=== PATIENT | female | born 1935 | race Caucasian/White ===

== ENCOUNTER 2017-11-28 15:38 | Inpatient (IN) | payer MEDICARE ==
[~2017-11-28] VITALS: Ht 154.9 cm; Wt 70.3 kg
[2017-11-28 17:25] VITALS: BP 113/67
[2017-11-28] MEDS ORDERED: CARISOPRODOL 350 MG (SOMA) TAB PO PRN (17:45)
[2017-11-28] MEDS: ESTRADIOL VAGINAL CREAM 42.5 GM (ESTRACE) VG SCH (20:31)
[2017-11-28] MEDS: ACETAMINOPHEN 325 MG TABLET PO PRN (20:33)
[2017-11-28] MEDS ORDERED: CIPROFLOXACIN 500 MG (CIPRO) TABLET PO ONE (20:47)
[2017-11-28] MEDS ORDERED: ALPRAZolam 0.5 MG (XANAX) TAB ONE (20:47)
--- NOTE | 2017-11-28 20:48 | HISTORY AND PHYSICAL ---
DATE OF SERVICE: 11/28/2017 CHIEF COMPLAINT: Difficulty with walking. HISTORY OF PRESENT ILLNESS: The patient is a 81-year-old female who was admitted to [facility] on 11/24/2017 due to severe painful deformity secondary to rheumatoid arthritis. The patient had resection of metatarsal head 2 through 5 and arthrodesis of the left first metatarsophalangeal joint, arthrodesis and hammer toe correction of the proximal interphalangeal joints 2 through 4, hammertoe arthroplasty of the fifth digit with podiatry. The patient is nonweightbearing postoperatively. She had been independent prior to this despite having rheumatoid arthritis affecting her feet, knees and spine. She has had two prior spinal surgeries, one in lumbar spine and cervical spine. Currently, she requires assistance for ADLs and mobility skills. She is referred to inpatient rehabilitation at [facility] for ongoing care and treatment. She has two daughters that live in the area where she lives in [place], [place]. The patient lives alone in her own house. PAST MEDICAL HISTORY: Thoracic aortic aneurysm without rupture, hypothyroidism on replacement, GERD with esophagitis, acute cystitis. PAST SURGICAL HISTORY: Spinal surgeries as per above and most recent foot surgery, right foot. ALLERGIES: ADHESIVE TAPE, LIPITOR, MORPHINE, SULFA, TRAMADOL, TRIMETHOPRIM. FAMILY HISTORY: Stroke, hypertension, stomach cancer, heart disease. SOCIAL HISTORY: She is retired, , lives in [place], [place]. A [id number] history of tobaccoism, cigarettes, quit 06/1972. She has 2 supportive children that report to unit with her. REVIEW OF SYSTEMS: A 10-point review of systems significant for arthritic pain in the spine, knees and feet. MEDICATIONS: Tylenol 650 mg p.o. q.6 hours as needed for pain, Percocet generic 5/325 one tablet p.o. q.6 hours as needed for pain, Xanax 0.5 mg p.o. daily, prednisone 2 mg p.o. daily, ASA 81 mg p.o. daily, Soma 350 mg p.o. at bedtime as needed for spasm, Cipro 250 mg p.o. b.i.d. for 5 days, Estrace vaginal cream apply vaginally every Tuesday, Tuesday, Tuesday; Flonase nasal spray 2 sprays each nostril b.i.d., Imdur 30 mg p.o. daily, levothyroxine 75 mcg p.o. daily, multivitamins 1 tablet p.o. daily, omeprazole 40 mg p.o. daily, probiotic 1 tablet p.o. daily, vitamin D 3000 units p.o. daily. PHYSICAL EXAMINATION: GENERAL: Significant for a pleasant female appearing her stated age, alert and oriented, in no acute distress, lying in bed. VITAL SIGNS: She is afebrile. Blood pressure 113/67, pulse 64, respirations 18, O2 sat 96% on room air. HEENT: Vision, speech, hearing grossly intact. No oral lesion is noted. NECK: Supple without mass. HEART: Regular rhythm. CHEST: Clear. ABDOMEN: Soft, nontender, bowel sounds present. EXTREMITIES: Her left foot is in a boot. There is no lower leg edema or calf tenderness on the right. MUSCULOSKELETAL: She has good minus strength in both upper limbs, Left Lower Limv strength Hip flex not tested due to pain with hip flexion Knee extension 4/ 5 as well as knee extension. RT Lower ext strength 3+/5 knee flexion 4/5 as well as knee extension. Dorsiflexion 5/5 NEUROLOGIC: Sensation is grossly intact to touch. Cognition grossly intact. IMPRESSION: 1. Ambulatory dysfunction secondary to consequences of rheumatoid arthritis, status post left foot surgery as described above, nonweightbearing left lower limb. 2. Arthritis of the spine, status post C-spine and lumbar spine surgery in the past. 3. Hypothyroidism, on replacement. 4. UTI on PO antibiotic. 5. Thoracic aortic aneurysm without rupture. 6. Gastroesophageal reflux disease with esophagitis on Prilosec. PLAN: The patient will have a comprehensive program of inpatient rehabilitation with goal of maximizing level of functional independence prior to discharge home with family with home health care. I believe her nonweightbearing status will be for 6 weeks. I will focus on wheelchair level of function for ADLs and mobility skills. Please see post-admission physician evaluation, which is a separate document of details of plan of care. Speech therapy to do cognitive assessment and treat as indicated. Rehabilitation nursing to assist with bowel, bladder, skin, wound care, medication administration, pain management. creative services director to assist with discharge planning, community reentry. Consult Dr. Hood to assist with medical management as needed for this out of town patient. ESTIMATED LENGTH OF STAY: 14 days. PROGNOSIS: Rehab prognosis appears good for goal of discharging home with family and home health care, hopefully modified independent to supervision for ADLs, mobility skills at the wheelchair level of function due to postop state of nonweightbearing right lower extremity for several weeks. DIET: Regular. CODE STATUS: Full code. Job ID: [id number] DocumentID: [id number] Dictated Date: 11/28/2017 19:05:46 Billet Sawyer Date: 11/28/2017 20:19:44 Dictated By: TOM ORTIZ MD [facility]
[2017-11-28] MEDS: ALPRAZolam 0.5 MG (XANAX) TAB PO SCH (20:53)
[2017-11-28] MEDS ORDERED: POLYETHYLENE GLYCOL 17 GM (MIRALAX) PACK PO SCH (21:00)
[2017-11-29] MEDS: LACTOBACILLUS Acidoph/Bulgar (LACTINEX/FLORANEX) TAB PO SCH ×3 (05:37→16:54)
[2017-11-29] MEDS: MULTIVIT W/MINERALS TAB (THERAGRAN M) PO SCH (05:38)
[2017-11-29] MEDS: LEVOTHYROXINE 75 MCG (LEVOTHROID) TABLET PO SCH (05:38)
[2017-11-29] MEDS: PANTOPRAZOLE 40 MG (PROTONIX) TAB PO SCH (05:38)
[2017-11-29 05:44] VITALS: BP 130/77
[2017-11-29] MEDS ORDERED: predniSONE 1 MG TAB PO SCH (07:00)
[2017-11-29 07:01] LABS: BASOPHILS % (AUTO) 0 % (0-10); EOSINOPHILS # (AUTO) 0.3 10^3/uL (0.0-0.3); EOSINOPHILS % (AUTO) 3 % (0-10); HEMATOCRIT 34 % (35-52); LYMPHOCYTES # (AUTO) 2.3 X 10^3 (1.0-4.0); LYMPHOCYTES % (AUTO) 26 % (12-44); MEAN CORPUSCULAR HEMOGLOBIN 27 PG (25-34); MEAN CORPUSCULAR HGB CONC 32 G/DL (32-36); MEAN CORPUSCULAR VOLUME 84 FL (80-99); MEAN PLATELET VOLUME 10.6 FL (7.4-10.4); MONOCYTES # (AUTO) 0.9 X 10^3 (0.0-1.0); MONOCYTES % (AUTO) 10 % (0-12); NEUTROPHILS # (AUTO) 5.2 X 10^3 (1.8-7.8); NEUTROPHILS % (AUTO) 60 % (42-75); PLATELET COUNT 201 10^3/uL (130-400); RED BLOOD COUNT 4.05 10^6/uL (4.35-5.85); RED CELL DISTRIBUTION WIDTH 19.6 % (10.0-14.5); WHITE BLOOD COUNT 8.6 10^3/uL (4.3-11.0)
[2017-11-29 07:41] LABS: ALANINE AMINOTRANSFERASE 12 U/L (0-55); ALBUMIN 3.4 GM/DL (3.2-4.5); ALKALINE PHOSPHATASE 54 U/L (40-136); BILIRUBIN,TOTAL 0.4 MG/DL (0.1-1.0); BUN/CREATININE RATIO 13; CALCIUM 8.8 MG/DL (8.5-10.1); CARBON DIOXIDE 26 MMOL/L (21-32); CHLORIDE 105 MMOL/L (98-107); CREATININE SERUM 0.77 MG/DL (0.60-1.30); GFR ESTIMATED > 60; GLUCOSE 89 MG/DL (70-105); POTASSIUM 3.9 MMOL/L (3.6-5.0); SODIUM 141 MMOL/L (135-145); TOTAL PROTEIN 6.1 GM/DL (6.4-8.2)
--- NOTE | 2017-11-29 08:44 | Consultation ---
History of Present Illness History of Present Illness Patient Consulted On(cornelius/time) 11/29/17 08:40 Time Seen by Provider: 08:40 History of Present Illness Patient had foot surgery left at [facility] in [place]. Patient nonweightbearing. Patient has a history of rheumatoid arthritis and hypothyroidism. Surgeries tubal ligation, hysterectomy, gallbladder. Allergies and Home Medications Allergies Coded Allergies: morphine (Verified Allergy, Mild, 11/28/17) Severe itching adhesive (Verified Allergy, Unknown, RASH, 11/28/17) atorvastatin (Verified Allergy, Unknown, 11/28/17) Muscle pain sulfamethoxazole (Verified Allergy, Unknown, HIVES, 11/28/17) tramadol (Verified Allergy, Unknown, 11/28/17) Hallucinations trimethoprim (Verified Allergy, Unknown, HIVES, 11/28/17) Patient Home Medication List Home Medication List Reviewed: Yes Past Czdkttm-Nncnqt-Ukmfxj Hx Patient Social History Smoking Status: Former Smoker Type Used: Cigarettes Former Smoker, Quit: Jun 20, 1972 Recent Foreign Travel: No Contact w/Someone Who Travel: No Recent Infectious Disease Expo: No Immunizations Up To Date Date of Pneumonia Vaccine: May 06, 2015 Past Medical History Surgeries: Yes (Arthrodesis- Left foot and Metatarsal resection 2-5. ) Cardiac: Yes (Chest pain; Thoracic Aneurysm without rupture) Gastrointestinal: Yes (Diverticulitis; ) Roblero's Esophagus Osteoporosis, Arthritis, Rheumatoid Arthritis Endocrine: Yes Cancer: No Review of Systems-General Constitutional: no symptoms reported EENTM: no symptoms reported Respiratory: no symptoms reported Cardiovascular: other (Skipped heartbeats) Gastrointestinal: no symptoms reported Genitourinary: other (History of acute cystitis) Physical Exam-General Problems Physical Exam Vital Signs Vital Signs - First Documented 11/28/17 17:25 Temp 97.4 Pulse 64 Resp 18 B/P (MAP) 113/67 (82) Pulse Ox 96 O2 Delivery Room Air Capillary Refill : General Appearance: WD/WN, no apparent distress Eyes: Bilateral Eye Normal Inspection HEENT: normal ENT inspection Neck: non-tender, full range of motion Respiratory: lungs clear, no respiratory distress, no accessory muscle use Cardiovascular: other (Skipped beats) Gastrointestinal: non tender, soft Assessment/Plan Assessment/Plan Admission Diagnosis/Plan Rheumatoid arthritis. Recent foot surgery. Nonweightbearing. Hypothyroid. Skipped heartbeats. Aortic aneurysm 4 cm 1 year ago Admission Status: Inpatient Order (span 2 midnights) Reason for Inpatient Admission: Recent surgery of left foot. Rheumatoid arthritis. Nonweightbearing Clinical Quality Measures DVT/VTE Risk/Contraindication: Risk Factor Score Per Nursin RFS Level Per Nursing on Admit: 4+=Very High LISA HARDING DO Nov 29, 2017 08:44
--- NOTE | 2017-11-29 08:57 | Physical Therapy Evaluation ---
PT Evaluation-General Medical Diagnosis Admission Date Nov 28, 2017 at 17:21 Medical Diagnosis: rheumatoid arthritis Onset Date: Nov 24, 2017 Therapy Diagnosis Therapy Diagnosis: impaired mobility, strength, endurance, balance, ROM Height/Weight Height (Feet): 5 Height (Inches): 1.00 Weight (Pounds): 155 Weight (Ounces): 0.0 Precautions Precautions/Isolations: Fall Prevention, Standard Precautions Weight Bear Status Right Lower Extremity: Right Full Weight Bearing Left Lower Extremity: Left Non Weight Bearing Referral Physician: Ad Reason for Referral: Evaluation/Treatment Medical History Additional Medical History PAST MEDICAL HISTORY: Thoracic aortic aneurysm without rupture, hypothyroidism on replacement, GERD with esophagitis, acute cystitis. PAST SURGICAL HISTORY: Spinal surgeries as per above and most recent foot surgery, right foot. Current History The patient had resection of metatarsal head 2 through 5 and arthrodesis of the left first metatarsophalangeal joint, arthrodesis and hammer toe correction of the proximal interphalangeal joints 2 through 4, hammertoe arthroplasty of the fifth digit with podiatry. Reviewed History: Yes Social History Home: Single Level Current Living Status: Alone Entry Into Home: Stairs With Railing PT Steps Into Home: 4 Patient states she is having a ramp built at her home and that she has a daughter living on her property but she works during the day. Prior/Core FIM Prior Level of Function Functional [place] Measure 0=Not Assessed/NA 4=Minimal Assistance 1=Total Assistance 5=Supervision or Setup 2=Maximal Assistance 6=Modified [place] 3=Moderate Assistance 7=Complete [place] Bed Mobility: 7 Transfers (B,C,W/C) (FIM): 7 Gait: 7 Patient states she was ambulating without an assistive device but did occasionally use a 4 wheeled walker on her porch. PT Evaluation-Current Subjective Patient in bed pre tx, agrees to PT, has 2/10 pain in her left foot. Patient has a back brace she likes to use to help with some abdominal pain she has. Pt/Family Goals "to get stronger and walk better" Objective Patient Orientation: Person, Place, Situation boot left foot ROM/Strength ROM Lower Extremities WNL except left ankle and foot not tested Strenght Lower Extremities right lower extremity hip flexion 3+/5, knee flexion 4/5, knee extension 4/5, dorsiflexion 5/5 left lower extremity hip flexion not tested due to pain with hip flexion, knee extension 4/5, knee flexion 4/5 Neuromuscular (Tone, Coordination, Reflexes) NT Sensory Vision: Functional Hearing: Functional Sensation Right Lower Extremit: Intact Sensation Left Lower Extremity: Intact Sensation Lower Extremities Patient states she has some numbness on the bottom of her right foot due to ankle surgery Transfers Functional Preble Measure 0=Not Assessed/NA 4=Minimal Assistance 1=Total Assistance 5=Supervision or Setup 2=Maximal Assistance 6=Modified [place] 3=Moderate Assistance 7=Complete IndependenceIRFPAI Quality Coding Scale 6 Independent with activity with or without an assistive device 5 Patient requires set up or clean up by helper. Patient completes activity by themselves 4 Supervision or touching assist (CGA). [place] provide cues , steadying assist 3 The helper provides less than half the effort to complete the activity 2 The helper provides more than half the effort to complete the activity 1 Dependent. The helper does all the effort to complete an activity 7 Patient refused to complete or attempt activity 9 The patient did not perform the activity before the current illness or injury 88 Not attempted due to Medical conditions or safety concerns Transfers (B, C, W/C) (FIM): 4 Scootin Rollin Roll Left to Right (QC): 4 Supine to/from Sit: 5 Sit to/from Stand: 4 bed t/f WC(FIM only if WC use): 4 Sit to Lying (QC): 4 Lying to Sitting/Side of Bed(Q: 4 Sit to Stand (QC): 4 Chair/Eym-ad-Fazlf Xfer(QC): 4 Car Transfer (QC): 4 Patient performs bed mobility with SBA, sit to stand and stand pivot transfers with CGA, car transfer with CGA. Patient needs cues for safety and hand placement. She has some difficulty with stand pivot transfer because she has a hard time pivoting on her right foot but she can do it with effort. Gait Does the Patient Walk?: Yes Mode of Locomotion: Walk Anticipated Mode of Locomotion: Walk Gait (FIM): 1 Walk 10 feet (QC): 88 Walk 50 ft with 2 Turns(QC): 88 Walk 150 ft (QC): 88 Walking 10ft/uneven surface-QC: 88 Distance: 3' Gait Level of Assist: 4 Gait Persons Needed: 1 Gait Assistive Device: FWW Comments/Gait Description Patient ambulated 3' with a rolling walker with CGA. She has a hard time hopping on her right leg but can do very small hops without assist but CGA. Wheelchair Training Does the Pt Use a Wheelchair?: Yes Wheelchair (FIM): 5 Distance: 150'x2 Wheelchair Level of Assist: 5 Wheel 50 ft with 2 turns (QC): 4 Wheel 150 ft (QC): 4 Type of Wheelchair: Manual Stairs If not tested on admit;explain Patient cannot hop high enough to get her right foot onto a step. Balance Sitting Static: Normal Sitting Dynamic: Normal Standing Static: Fair Standing Dynamic: Fair Picking up an Object (QC): 88 Treatment standing exercises in parallel bars x15 (hip flexion and abd left side, hamstring curls and marching left side), seated LAQ alternating for 5 min, seated hip abd with pillow x20 and hip abd with RTB x20 Assessment/Needs Patient has impaired mobility, strength, endurance, balance, ROM due to RA and left foot surgery Rehab Potential: Fair PT Short Term Goals Short Term Goals Time Frame: Dec 06, 2017 Transfers (B,C,W/C) (FIM): 5 Gait (FIM): 1 Gait Distance Comment: 20' Gait Level of Assist: 4 Gait Assistive Device: FWW PT Custodial Goals Custodial Goals PT Maintenance Helper Goals Time Frame: Dec 20, 2017 Transfers (B,C,W/C) (FIM): 6 Sit to Lying (QC): 6 Lying-Sitting on Side/Bed(QC): 6 Sit to Stand (QC): 6 Rollin Roll Left to Right (QC): 6 Chair/Yse-ys-Edexc Xfer(QC): 6 Car Transfer (QC): 6 Gait (FIM): 2 Distance: 50' Walk 10 feet (QC): 4 Walk 10ft-Uneven Surface(QC): 4 Walk 50ft with 2 Turns (QC): 4 Walk 150 ft (QC): 4 Gait Level of Assist: 5 Gait Assistive Device: FWW Wheelchair (FIM): 6 Distance: 150' Wheelchair Level of Assist: 6 Wheel 50 feet with 2 turns (QC: 6 PT Plan Problem List Problem List: Activity Tolerance, Functional Strength, Safety, Balance, Gait, Transfer, Bed Mobility, ROM Treatment/Plan Treatment Plan: Continue Plan of Care Treatment Plan: Bed Mobility, Education, Functional Activity Kang, Functional Strength, Group Therapy, Gait, Safety, Therapeutic Exercise, Transfers Treatment Duration: Dec 20, 2017 Frequency: At least 5 of 7 days/Wk (IRF) Estimated Hrs Per Day: 1.5 hours per day Patient and/or Family Agrees t: Yes Safety Risks/Education Patient Education: Gait Training, Transfer Techniques, Reviewed Precautions, Correct Positioning, W/C Management, Safety Issues Teaching Recipient: Patient Teaching Methods: Demonstration, Discussion Response to Teaching: Reinforcement Needed Discharge Recommendations Plan Patient will perform bed mobility and transfer training, balance and endurance training, functional strengthening, stair training, gait training, and education , to improve functional mobility and independence at home. Therapy D/C Recommendations: Home w/ Family Support Time/GCodes Time In: 800 Time Out: 0900 Total Billed Treatment Time: 60 Total Billed Treatment 1 visit EVM 30' FA 15' EX 15' TABITHA FERGUSON PT Nov 29, 2017 08:57
--- NOTE | 2017-11-29 08:59 | PM&R Post Admission Assessment ---
Post Admission Physician Asses Date seen by provider: Nov 29, 2017 Time seen by provider: 07:55 Admisison Dx: (1) Rheumatoid arthritis The preadmission screen agrees with the post admission assessment that the patient is a good candidate for inpatient rehabilitation. The patient will have a comprehensive program of inpatient rehabilitation with a goal of maximizing level of functional independence prior to discharge home with family and HHC. The patient will have PT/OT ninety minutes per day, each discipline, five days a week for 14 days for gait, strengthening, conditioning, balance, ADLs, any patient/family/caregiver training as necessary. Speech therapy to do cognitive assessment and treat as indicated. Rehabilitation nursing to assist with bowel, bladder, skin, wound care, medication administration, pain management. Bread Oven Operator to assist with discharge planning, community reentry. SCD's for DVT prophylaxis. She appears to be well motivated to participate in three hours of therapy a day. She should be able to tolerate three hours of therapy a day from a medical and surgical standpoint. She should benefit from the three hours of therapy a day. She has a reasonable discharge plan, reasonable discharge rehabilitation goals and a supportive family. She has various comorbidities that need to be closely monitored with medications and treatments adjusted on a daily basis as needed. These include: Postop UTI GERD Thoracic aortic aneurysm Chronic steroid usage Barriers to discharge for this patient who had been independent prior to this are for her to be modified independent to supervision for ADLs and mobility skills prior to discharge home with family and HHC, so as to lessen the burden of the caregivers. Will focus on W/C level of function due to NWB status RLE postop for several weeks. The patient has a supportive family who lives nearby.Will focus on strengtheing Upper limbs and LLE to compenstae for NWB status RLE. Risks for this patient include: 1. Fall 2. Fracture 3. DVT 4. Pulmonary embolism 5. Wound infection 6. Skin breakdown 7. Contractures 8. Poorly controlled pain 9. Urinary retention 10. Recurrent UTI 11. Respiratory infection 12. Aspiration 13.Flare of RA Estimated Length of Stay: 14 days Prognosis: Rehab prognosis appears good for goal of discharge home with family and HHC modified independent to supervision for ADLs and mobility skills. at the w/c level of function due to NWB Status RLE.The patient had been Independent and living alone in her own home prior to this surgery. General: Alert, Oriented X3, Cooperative, No Acute Distress HEENT: Atraumatic, PERRLA, EOMI, Mucous Memb Moist/[place] Neck: Supple, No JVD Lungs: Clear to Auscultation Heart: Regular Rate Abdomen: Normal Bowel Sounds, Soft, No Tenderness Extremities: Other (RT Foot in boot) Neuro: Other (Strength 4/5 BUES and LLE RT limited by boot Sensation grossly intact to touch) TOM ORTIZ MD Nov 29, 2017 08:59
[2017-11-29] MEDS ORDERED: ALPRAZolam 0.5 MG (XANAX) TAB PO SCH (09:00)
[2017-11-29] MEDS ORDERED: FLUT16SP22 NS (09:16)
[2017-11-29] MEDS ORDERED: OMEP40CA36 PO (09:16)
[2017-11-29] MEDS ORDERED: ALPR0.5T7 PO (09:16)
[2017-11-29] MEDS ORDERED: L.AC1CAP6 PO (09:16)
[2017-11-29] MEDS ORDERED: PRED5TAB PO (09:16)
[2017-11-29] MEDS ORDERED: ESTR42.52 VG (09:16)
[2017-11-29] MEDS ORDERED: CHOL10007 PO (09:16)
[2017-11-29] MEDS ORDERED: MULT-35 PO (09:16)
[2017-11-29] MEDS ORDERED: PRD1T PO (09:16)
[2017-11-29] MEDS ORDERED: LEVO75TA6 PO (09:16)
[2017-11-29] MEDS ORDERED: ASPI-983 PO (09:16)
[2017-11-29] MEDS ORDERED: ISOS30TA3 PO (09:16)
[2017-11-29] MEDS ORDERED: CARI350T27 PO (09:16)
[2017-11-29] MEDS: ISOSORBIDE MONONITRATE 30 MG (IMDUR) TAB PO SCH (09:19)
[2017-11-29] MEDS: ASPIRIN E.C. 81 MG (ECOTRIN) TAB PO SCH (09:20)
[2017-11-29] MEDS: CIPROFLOXACIN 500 MG (CIPRO) TABLET PO SCH ×2 (09:20→21:13)
[2017-11-29] MEDS: VITAMIN D3 1,000 UNITS (CHOLECALCIFEROL) TABLET PO SCH (09:21)
[2017-11-29] MEDS: FLUTICASONE NASAL SPRAY (FLONASE) 16 GM BTL NS SCH (09:21)
--- NOTE | 2017-11-29 09:29 | ST Cognitive Linguistic Eval ---
Speech Evaluation-General Medical Diagnosis rheumatoid arthritis Onset Date: Nov 24, 2017 Therapy Diagnosis Therapy Diagnosis: Cognitive Linguistic Skills WNL Precautions Precautions/Isolations: Fall Prevention, Standard Precautions Referral Referring Physician: Dr. Maurice Duong Reason for Referral: Evaluation/Treatment Cognitive Evaluation Medical History Pertinent Medical History: Arthritis Current History The patient was recently admitted to [facility] following a left foot procedure. Reviewed History: Yes Social History Current Living Status: Alone Speech PLF-Current Status Prior Level of Function The patient denied prior challenges with speech, language, or cognition. Subjective The patient was seated upright on the edge of bed. The patient greeted the clinician and was agreeable to participation in the speech, language, and cognitive assessment. Language Eval: Auditory Comprehends Simple Yes/No Ques: Functional Indent/Objects Multiple Alvarez: Functional Ident/Pics in Multiple Alvarez: Functional Follows 1-Step Commands: Functional Follows Complex Directions: Functional Follows General Conversations: Functional Language Eval: Verbal Language Completes Spontaneous Greeting: Functional Produces Auto, Serial Info: Functional Imitates Simple Words/Phrases: Functional Word Finding: Functional Requests Basic Needs: Functional States Basic Personal Info: Functional Expresses Complex Ideas: Functional Cognitive Patient Orientation The patient was independently oriented to self, location, month, day of week, date, and year. Objective Cognitive Domain Attention: WNL Memory: WNL Problem Solving: Functional Executive Functions: WNL Objective Impression The patient demonstrated cognitive linguistic skills within normal limits. Communication/Social Cognition Comprehension: 6 (Glasses.) Expression: 7 Social Interaction: 7 Problem Solvin Memory: 7 Speech Patient Assess Expression of Ideas/Wants: Expression (4) Understanding Verbal Content: Understands (4) Brief Interview-Mental Status: Yes Repetition of Three Words: Three (3) Temporal Orientation: Year: Correct (3) Temporal Orientation: Month: Accurate within 5 days(2) Temporal Orientation: Day: Correct (1) Recall : Wear to say "Sock": Yes, no cue required (2) Recall : Color: Yes, no cue required (2) Recall : Bed: Yes, no cue required (2) Speech-Plan Treatment Plan Speech Therapy Treatment Plan: Discontinue ST No ST warranted. Frequency: Modified Program (IRF) Estimated Hrs Per Day: Other Rehab Potential: Good Safety Risks/Education Teaching Recipient: Patient Teaching Methods: Discussion Response to Teaching: Verbalize Understanding Education Topics Provided: Results, Recommendations Time Speech Therapy Time In: 09:00 Speech Therapy Time Out: 09:15 Total Billed Time: 15 Billed Treatment Time 1, SONA GE Nov 29, 2017 09:29
[2017-11-29] MEDS: POLYETHYLENE GLYCOL 17 GM (MIRALAX) PACK PO SCH ×2 (09:53→21:13)
[2017-11-29] MEDS ORDERED: CIPR250T3 PO (09:53)
[2017-11-29 10:02] LABS: BILIRUBIN,URINE NEGATIVE (NEGATIVE); CLARITY,URINE CLEAR; COLOR,URINE YELLOW; GLUCOSE, URINE (UA) NEGATIVE (NEGATIVE); KETONES,URINE NEGATIVE (NEGATIVE); LEUKOCYTE ESTERASE ,URINE NEGATIVE (NEGATIVE); NITRITE,URINE NEGATIVE (NEGATIVE); PH,URINE 8 (5-9); PROTEIN,URINE NEGATIVE (NEGATIVE); UROBILINOGEN,URINE NORMAL (NORMAL)
[2017-11-29 10:14] LABS: AMORPHOUS SEDIMENT,UR RARE AMOR PHOSPHATE /LPF; BACTERIA,URINE NEGATIVE /HPF; RBC,URINE 0-2 /HPF; SQUAMOUS EPITHELIAL CELL,UR RARE /HPF
[2017-11-29] MEDS: oxyCODONE/APAP 5/325MG (PERCOCET 5) TABLET PO PRN ×2 (10:23→22:49)
--- NOTE | 2017-11-29 11:52 | Diagnostic Imaging Report ---
INDICATION: Left hip and groin pain COMPARISON: None. FINDINGS: 2 views of the left hip demonstrate minimal degenerative joint disease. There is a lucency with some sclerotic borders across the left femoral neck near the intertrochanteric line. This could represent a nondisplaced fracture. However, this is not seen on the oblique view. No osseous lesion is seen. IMPRESSION: Line of sclerosis with lucency across the distal femoral neck likely artifact. Consider CT imaging for further evaluation. Minimal degenerative changes. Report was FAXED/called to office of Dr. Hood by ranjit at 11:51 am. Dictated by: Dictated on workstation # [id number]
--- NOTE | 2017-11-29 12:58 | Physical Therapy Daily Note ---
PT Daily Note-Current Subjective Pt. agrees to Rx. Shares her history of arthritis and things that have helped and hindered. States she has her home set up well as she has battled this for quite a while Pain Numeric Pain Scale: 3 Location: Medial Location Body Site: Back Pain Description: Ache Mental Status Patient Orientation: Normal For Age Attachments: Other-See Comments (boot right foot) Transfers Functional [place] Measure 0=Not Assessed/NA 4=Minimal Assistance 1=Total Assistance 5=Supervision or Setup 2=Maximal Assistance 6=Modified [place] 3=Moderate Assistance 7=Complete IndependenceIRFPAI Quality Coding Scale 6 Independent with activity with or without an assistive device 5 Patient requires set up or clean up by helper. Patient completes activity by themselves 4 Supervision or touching assist (CGA). [place] provide cues , steadying assist 3 The helper provides less than half the effort to complete the activity 2 The helper provides more than half the effort to complete the activity 1 Dependent. The helper does all the effort to complete an activity 7 Patient refused to complete or attempt activity 9 The patient did not perform the activity before the current illness or injury 88 Not attempted due to Medical conditions or safety concerns sup to sit and sit to sup all SBA Weight Bearing Right Lower Extremity: Right Full Weight Bearing Left Lower Extremity: Left Non Weight Bearing Gait Training Does the Patient Walk?: Yes Exercises Supine Ex: Ankle pumps, Quad Set, Rolling, Glut sets, Heel Slides, Short Arc Quads, Scooting, Straight leg raise, Hip abd/add Supine Reps: 15 Assessment Current Status: Good Progress PT Short Term Goals Short Term Goals Time Frame: Dec 06, 2017 Transfers (B,C,W/C) (FIM): 5 Gait (FIM): 1 Gait Distance Comment: 20' Gait Level of Assist: 4 Gait Assistive Device: FWW Wheelchair Distance: 150'x2 PT Industrial Relations Analyst Goals Industrial Relations Analyst Goals PT [facility] Goals Time Frame: Dec 20, 2017 Transfers (B,C,W/C) (FIM): 6 Sit to Lying (QC): 6 Lying-Sitting on Side/Bed(QC): 6 Sit to Stand (QC): 6 Rollin Roll Left to Right (QC): 6 Chair/Sqj-qd-Wtsre Xfer(QC): 6 Car Transfer (QC): 6 Gait (FIM): 2 Distance: 50' Walk 10 feet (QC): 4 Walk 10ft-Uneven Surface(QC): 4 Walk 50ft with 2 Turns (QC): 4 Walk 150 ft (QC): 4 Gait Level of Assist: 5 Gait Assistive Device: FWW Wheelchair (FIM): 6 Distance: 150' Wheelchair Level of Assist: 6 Wheel 50 feet with 2 turns (QC: 6 PT Plan Treatment/Plan Treatment Plan: Continue Plan of Care Treatment Plan: Bed Mobility, Education, Functional Activity Kang, Functional Strength, Group Therapy, Gait, Safety, Therapeutic Exercise, Transfers Treatment Duration: Dec 20, 2017 Frequency: At least 5 of 7 days/Wk (IRF) Estimated Hrs Per Day: 1.5 hours per day Patient and/or Family Agrees t: Yes Safety Risks/Education Patient Education: Transfer Techniques, Correct Positioning, Safety Issues Teaching Recipient: Patient Teaching Methods: Demonstration, Discussion Response to Teaching: Verbalize Understanding, Return Demonstration, Reinforcement Needed Time/GCodes Time In: 1130 Time Out: 1200 Total Billed Treatment Time: 30 Total Billed Treatment 1,FA10,EX20 G Codes Necessary: TIERNEY May CLIENT RESOURCE SPECIALIST Nov 29, 2017 12:57
--- NOTE | 2017-11-29 13:48 | PM & R (SOAP) Progress Note ---
Subjective This was a face to face visit with the patient. Date Seen by Provider: Nov 29, 2017 Time Seen by Provider: 08:00 Subjective/Events-last exam Patient was seen in her room this AM Adjusting well to unit.The patient is mod assist for transfers,Todays Labs noted Patient c/o left hip pain Imaging study reveals DJD.Patient Indicates that she was on higher dose of prednisone at home.Discussed with RN who checked with DPM who has no objection to resuming home dose. Review of Systems Musculoskeletal: leg pain, foot pain Objective Physician Exam Last Set of Vital Signs Vital Signs Date Time Temp Pulse Resp B/P (MAP) Pulse Ox O2 Delivery O2 Flow Rate FiO2 11/29/17 08:58 Room Air 11/29/17 05:44 98.0 71 18 130/77 (94) 96 Capillary Refill : I&O Intake and Output 11/29/17 00:00 # Voids 2 Daily Weight Change No General: Alert, Oriented X3, Cooperative, No Acute Distress HEENT: Atraumatic, PERRLA, EOMI, Mucous Memb Moist/[place] Neck: Supple, No JVD Lungs: Clear to Auscultation Heart: Regular Rate Abdomen: Normal Bowel Sounds, Soft, No Tenderness Extremities: Other (RT Foot in boot) Neuro: Other (Strength 4/5 BUES and LLE RT limited by boot Sensation grossly intact to touch) Results Lab Data Laboratory Tests 11/29/17 06:37: White Blood Count 8.6, Red Blood Count 4.05L, Hemoglobin 11.0L, Hematocrit 34L, Mean Corpuscular Volume 84, Mean Corpuscular Hemoglobin 27, Mean Corpuscular Hemoglobin Concent 32, Red Cell Distribution Width 19.6H, Platelet Count 201, Mean Platelet Volume 10.6H, Neutrophils (%) (Auto) 60, Lymphocytes (%) (Auto) 26 , Monocytes (%) (Auto) 10, Eosinophils (%) (Auto) 3, Basophils (%) (Auto) 0, Neutrophils # (Auto) 5.2, Lymphocytes # (Auto) 2.3, Monocytes # (Auto) 0.9, Eosinophils # (Auto) 0.3, Basophils # (Auto) 0.0, Sodium Level 141, Potassium Level 3.9, Chloride Level 105, Carbon Dioxide Level 26, Anion Gap 10, Blood Urea Nitrogen 10, Creatinine 0.77, Estimat Glomerular Filtration Rate > 60, BUN/ Creatinine Ratio 13, Glucose Level 89, Calcium Level 8.8, Total Bilirubin 0.4, Aspartate Amino Transf (AST/SGOT) 19, Alanine Aminotransferase (ALT/SGPT) 12, Alkaline Phosphatase 54, Total Protein 6.1L, Albumin 3.4 11/29/17 09:55: Urine Color YELLOW, Urine Clarity CLEAR, Urine pH 8, Urine Specific [place] 1.010L, Urine Protein NEGATIVE, Urine Glucose (UA) NEGATIVE, Urine Ketones NEGATIVE, Urine Nitrite NEGATIVE, Urine Bilirubin NEGATIVE, Urine Urobilinogen NORMAL, Urine Leukocyte Esterase NEGATIVE, Urine RBC (Auto) 1+H, Urine RBC 0-2, Urine WBC NONE, Urine Squamous Epithelial Cells RARE, Urine Crystals PRESENTH, Urine Amorphous Sediment RARE KATINA PHOSPHATEH, Urine Bacteria NEGATIVE, Urine Casts NONE, Urine Mucus NEGATIVE, Urine Culture Indicated NO Assessment/Plan Assessment and Plan RA of spine and left hip and left foot Chronic steroid usage UTI on antibiotic Thoracic aortic aneursym without rupture GERD with espohagitis on PPI Hypothyroidism on replacement Plan Continue PT/OT/Pain management Adjust Prednisone to home dosage-See orders Team Conference tomorrow (1) Rheumatoid arthritis Qualifiers: Status: Acute Co-Morbidities that are continuing to impact the rehab process: (include details ) TOM ORTIZ MD Nov 29, 2017 13:48
--- NOTE | 2017-11-29 14:59 | Occupational Therapy Eval ---
OT Evaluation-General/PLF Medical Diagnosis Admission Date Nov 28, 2017 at 17:21 Medical Diagnosis: rheumatoid arthritis/Left foot surgery Onset Date: Nov 24, 2017 Therapy Diagnosis Therapy Diagnosis: Weakness Height/Weight Height (Feet): 5 Height (Inches): 1.00 Weight (Pounds): 155 Weight (Ounces): 0.0 Precautions Precautions/Isolations: Fall Prevention, Standard Precautions Safety Interventions: None Weight Bear Status Weight Bearing Restriction: Non Weight Bearing Location Restriction: R LE Referral Physician: Ad Referral Reason: Activity Tolerance, Self Care, Evaluation/Treatment, Strengthening/ROM Medical History Pertinent Medical History: Arthritis, GERD Additional Medical History Aortic aneurysm, 2 spine surgeries, 2001, 2016, Left foot metatarsal resection. Current History Pt. has boot on left LE. Reviewed History: Yes Social History Home: Single Level Current Living Status: Alone Entry Into Home: Stairs With Railing Steps Into Home: 4 Family is going to build a ramp. ADL-Prior Level of Function ADL PLOF Comments Pt. was independent with all ADL tasks previous to this surgery. DME/Equipment: Bath Chair, Bedside Commode, Shower DME/Equipment Comments Pt. has a walker. Drive Self: Yes OT Current Status Subjective Pt. reports having some RA pain. Nursing is aware and working on pt's previous arthritis medications. Appearance Pt. is up in chair. Agrees to work with OT. Mental Status/Objective Patient Orientation: Person, Place, Time, Situation Current Upper Extremity ROM WFL Upper Extremity Strength WFL ADL-Treatment Functional [place] Measure 0=Not Assessed/NA 4=Minimal Assistance 1=Total Assistance 5=Supervision or Setup 2=Maximal Assistance 6=Modified [place] 3=Moderate Assistance 7=Complete IndependenceIRFPAI Quality Coding Scale 6 Independent with activity with or without an assistive device 5 Patient requires set up or clean up by helper. Patient completes activity by themselves 4 Supervision or touching assist (CGA). [place] provide cues , steadying assist 3 The helper provides less than half the effort to complete the activity 2 The helper provides more than half the effort to complete the activity 1 Dependent. The helper does all the effort to complete an activity 7 Patient refused to complete or attempt activity 9 The patient did not perform the activity before the current illness or injury 88 Not attempted due to Medical conditions or safety concerns Grooming (FIM): 5 (Pt. brushed hair and teeth from wheelchair level after set up.) Oral Hygiene (QC): 5 Bathing (FIM): 4 (CGA in stance. Pt. able to wash all parts.) Shower/Bathe Self (QC): 4 Upper Body Dressing (FIM): 5 Upper Body Dressing (QC): 4 Lower Body Dressing (FIM): 4 (Pt. able to don right shoe with min assist. Min assist to thread feet through depend.) Lower Body Dressing (QC): 4 On/Off Footwear (QC): 4 Toileting (FIM): 4 (CGA in stance to pull up and down underwear.) Toileting Hygiene (QC): 4 Transfers (B, C, W/C) (FIM): 4 Toilet/Commode Transfer (FIM): 4 Toilet Transfer (QC): 4 Shower Transfer (FIM): 4 Other Treatments After ADL treatment, pt. self propelled wheelchair to therapy gym. Completed armbike x 15 minutes at min/mod resistance. Worked on this to increase overall strength and independence. After therapy gym, pt. self propelled to room. Transferred to bed with CGA. All needs met at bed level. Education OT Patient Education: Correct positioning, Exercise program, Modified ADL techniques, Progress toward Goal/Update tx plan, Purpose of tx/functional activities, Reviewed precautions, Rehab process, Transfer techniques Teaching Recipient: Patient Teaching Methods: Demonstration, Discussion Response to Teaching: Verbalize Understanding, Return Demonstration OT Short Term Goals Short Term Goals Time Frame: Dec 06, 2017 Eating(FIM): 6 Grooming(FIM): 6 Bathing(FIM): 5 Upper Body Dressing(FIM): 5 Lower Body Dressing(FIM): 5 Toileting(FIM): 6 Transfers (B,C,W/C) (FIM): 5 Toilet/Commode Transfer(FIM): 5 Shower Transfer(FIM): 5 Additional Short Term Goals: 1-Demonstrate ADL Tasks, 2-Verbalize Understanding , 3-ImproveStrength/Kang 1=Demonstrate adherence to instructed precautions during ADL tasks. 2=Patient will verbalize/demonstrate understanding of assistive devices/ modifications for ADL. 3=Patient will improve strength/tolerance for activity to enable patient to perform ADL's. OT [place] [employer] Direction Specialist Goals Halfway Goals Time Frame: Dec 13, 2017 Eating (FIM): 6 Eating (QC): 6 Groomin Oral Hygiene (QC): 6 Bathing(FIM): 5 Shower/Bathe Self (QC): 5 Upper Body Dressing(FIM): 6 Upper Body Dressing (QC): 6 Lower Body Dressing(FIM): 6 Lower Body Dressing (QC): 6 On/Off Footwear (QC): 6 Toileting(FIM): 6 Toileting Hygiene (QC): 6 Transfers (B,C,W/C) (FIM): 6 Toilet/Commode Transfer(FIM): 6 Toilet/Commode Transfer (QC): 6 Shower Transfer(FIM): 5 Additional Goals: 1-Demonstrate ADL Tasks, 2-Verbalize Understanding, 3- ImproveStrength/Kang 1=Demonstrate adherence to instructed precautions during ADL tasks. 2=Patient will verbalize/demonstrate understanding of assistive devices/ modifications for ADL. 3=Patient will improve strength/tolerance for activity to enable patient to perform ADL's. OT Education/Plan Problem List/Assessment Assessment: Decreased Activ Tolerance, Impaired I ADL's, Impaired Self-Care Skills Discharge Recommendations Plan/Recommendations: Continue POC Therapy D/C Recommendations: Home w/ Family Support, Occupational Therapy Home Care Comment Pt. will possibly need a wheelchair or knee scooter. Target Placement Home with family support. Daughter is an GLASS LINED TANK REPAIRER. Treatment Plan/Plan of Care Treatment,Training & Education: Yes Patient would benefit from OT for education, treatment and training to promote independence in ADL's, mobility, safety and/or upper extremity function for ADL' s. Plan of Care: ADL Retraining, Functional Mobility, UE Funct Exercise/Act Treatment Duration: Dec 13, 2017 Frequency: At least 5 of 7 days/Wk (IRF) Estimated Hrs Per Day: 1.5 hours per day Agreement: Yes Rehab Potential: Good Time/GCodes Start Time: 09:30 Stop Time: 11:00 Total Time Billed (hr/min): 90 Billed Treatment Time 1, EVM x 15minutes, ADL x 45minutes, Ex x 30minutes SHAMA UREÑA OT Nov 29, 2017 14:59
--- NOTE | 2017-11-29 15:36 | Diagnostic Imaging Report ---
PROCEDURE: CT pelvis without contrast. TECHNIQUE: Multiple contiguous axial images were obtained through the pelvis without the use of intravenous contrast. Sagittal and coronal reformations were performed. INDICATION: Left hip pain. No known injury. CORRELATION STUDY: Radiographs from earlier the same day. FINDINGS: Diffuse bony demineralization is present. There is a relatively normal femoral head/acetabular relationship apart from mild narrowing. The bony trabecular pattern is intact. No acute fracture. There is deformity with destructive change about the right iliac bone medially near the posterior/superior iliac spine. No appreciable soft tissue component. There are postop changes of decompressive laminectomy and fusion at the L4-L5 level. There is at least moderate narrowing of both foramina at the L5-S1 level owing to prominent osteophyte formation. The uterus is absent. There does appear to be slight bladder prolapse. There are fat-containing bilateral inguinal hernias. IMPRESSION: 1. Unremarkable appearance about the bilateral hips apart from mild joint space narrowing. No acute bony abnormality of the left hip. 2. Destructive change of the right iliac crest medially. This may very well reflect a bone graft site given the lumbar spine surgery. A destructive process would be considered less likely but is not excluded. Correlation with clinical/surgical history. Dictated by: Dictated on workstation # [id number]
[2017-11-29 16:51] VITALS: BP 110/66
[2017-11-29] MEDS ORDERED: predniSONE 5 MG TAB ONE (21:10)
[2017-11-29] MEDS: ALPRAZolam 0.5 MG (XANAX) TAB PO SCH (21:13)
[2017-11-29] MEDS: predniSONE 5 MG TAB PO SCH (21:14)
[2017-11-29] MEDS ORDERED: predniSONE 5 MG TAB PO ONE (21:45)
[2017-11-30 06:13] VITALS: BP 121/70
[2017-11-30] MEDS ORDERED: predniSONE 5 MG TAB PO SCH (07:00)
[2017-11-30] MEDS: LACTOBACILLUS Acidoph/Bulgar (LACTINEX/FLORANEX) TAB PO SCH ×3 (08:00→16:32)
[2017-11-30] MEDS: VITAMIN D3 1,000 UNITS (CHOLECALCIFEROL) TABLET PO SCH (08:00)
[2017-11-30] MEDS: ISOSORBIDE MONONITRATE 30 MG (IMDUR) TAB PO SCH (08:00)
[2017-11-30] MEDS: PANTOPRAZOLE 40 MG (PROTONIX) TAB PO SCH (08:01)
[2017-11-30] MEDS: MULTIVIT W/MINERALS TAB (THERAGRAN M) PO SCH (08:01)
[2017-11-30] MEDS: predniSONE 5 MG TAB PO SCH (08:01)
[2017-11-30] MEDS: predniSONE 1 MG TAB PO SCH (08:01)
[2017-11-30] MEDS: ASPIRIN E.C. 81 MG (ECOTRIN) TAB PO SCH (08:01)
[2017-11-30] MEDS: LEVOTHYROXINE 75 MCG (LEVOTHROID) TABLET PO SCH (08:01)
[2017-11-30] MEDS: POLYETHYLENE GLYCOL 17 GM (MIRALAX) PACK PO SCH ×2 (08:02→20:55)
[2017-11-30] MEDS: CIPROFLOXACIN 500 MG (CIPRO) TABLET PO SCH ×2 (08:02→20:54)
[2017-11-30] MEDS: FLUTICASONE NASAL SPRAY (FLONASE) 16 GM BTL NS SCH (08:04)
--- NOTE | 2017-11-30 08:47 | Progress Note (SOAP) ---
Subjective Time Seen by Provider: 08:45 Subjective/Events-last exam Patient feeling better with left hip. CAT scan shows negative. Patient working progress. Patient improving Objective Exam Vital Signs Date Time Temp Pulse Resp B/P (MAP) Pulse Ox O2 Delivery O2 Flow Rate FiO2 11/30/17 06:13 98.4 64 18 121/70 (87) 94 Room Air 11/29/17 20:20 Room Air 11/29/17 16:51 97.0 73 18 110/66 (81) 95 Room Air 11/29/17 08:58 Room Air I & O 11/30/17 07:00 Intake Total 1300 ml Balance 1300 ml Capillary Refill : General Appearance: No Apparent Distress, WD/WN HEENT: Normal ENT Inspection Respiratory: Chest Non Tender, No Accessory Muscle Use, No Respiratory Distress Cardiovascular: Regular Rate, Rhythm, No Murmur Gastrointestinal: soft Results Lab Laboratory Tests 11/29/17 09:55: Urine Color YELLOW, Urine Clarity CLEAR, Urine pH 8, Urine Specific [place] 1.010L, Urine Protein NEGATIVE, Urine Glucose (UA) NEGATIVE, Urine Ketones NEGATIVE, Urine Nitrite NEGATIVE, Urine Bilirubin NEGATIVE, Urine Urobilinogen NORMAL, Urine Leukocyte Esterase NEGATIVE, Urine RBC (Auto) 1+H, Urine RBC 0-2, Urine WBC NONE, Urine Squamous Epithelial Cells RARE, Urine Crystals PRESENTH, Urine Amorphous Sediment RARE KATINA PHOSPHATEH, Urine Bacteria NEGATIVE, Urine Casts NONE, Urine Mucus NEGATIVE, Urine Culture Indicated NO Assessment/Plan Assessment/Plan Assess & Plan/Chief Complaint Rheumatoid arthritis. Recent foot surgery. Nonweightbearing. Hypothyroid. Skipped heartbeats. Aortic aneurysm 4 cm 1 year ago. . 11/30/17. Rheumatoid arthritis. Recent foot surgery. Left hip negative. Clinical Quality Measures DVT/VTE Risk/Contraindication: Risk Factor Score Per Nursin RFS Level Per Nursing on Admit: 4+=Very High LISA HARDING DO Nov 30, 2017 08:47
--- NOTE | 2017-11-30 09:04 | Physical Therapy Daily Note ---
PT Daily Note-Current Subjective Pt. agrees to Rx. Pt. explains the small home she lives in, and that she has a bed that is elevated at the head b/c of esophageal problems . Pt. states she does not want to stay here in hosp more than 2 weeks tops. Wants to get a plan/ routine down and leave Pain Numeric Pain Scale: 0-No Pain Location: No Pain Reported Mental Status Patient Orientation: Normal For Age Attachments: Other-See Comments (boot RLE) Transfers Functional [place] Measure 0=Not Assessed/NA 4=Minimal Assistance 1=Total Assistance 5=Supervision or Setup 2=Maximal Assistance 6=Modified [place] 3=Moderate Assistance 7=Complete IndependenceIRFPAI Quality Coding Scale 6 Independent with activity with or without an assistive device 5 Patient requires set up or clean up by helper. Patient completes activity by themselves 4 Supervision or touching assist (CGA). [place] provide cues , steadying assist 3 The helper provides less than half the effort to complete the activity 2 The helper provides more than half the effort to complete the activity 1 Dependent. The helper does all the effort to complete an activity 7 Patient refused to complete or attempt activity 9 The patient did not perform the activity before the current illness or injury 88 Not attempted due to Medical conditions or safety concerns Transfers (B, C, W/C) (FIM): 5 Scootin Rollin Supine to/from Sit: 6 Sit to/from Stand: 5 Bed to/from Chair: 5 many TRFs w/c to toilet and w/c to simulated bed height and to recliner. Pt. does very well and had no LOB and maintained NWB ing well. Weight Bearing Right Lower Extremity: Right Full Weight Bearing Left Lower Extremity: Left Non Weight Bearing Gait Training no gait per pt. request Wheelchair Training Does the Pt Use a Wheelchair?: Yes Wheelchair (FIM): 5 Wheelchair Level of Assist: 5 Type of Wheelchair: Manual needed skilled verbal instruction for w/c use Exercises Seated Therapy Exercises: Long arc quads, Hip flexion Seated Reps: 15 Standing: Hip Abduction, Hamstring curls, 3 way Ex=Flex, Abd, Ext Standing Reps: 15 (R only) Treatments BSC placed over toilet. discussed that pt. will likely not have FT care at home and may want to learn to use BSC over toilet at home to save someone having to empty BSC, Assessment Current Status: Good Progress good progress PT Short Term Goals Short Term Goals Time Frame: Dec 06, 2017 Transfers (B,C,W/C) (FIM): 5 Gait (FIM): 1 Gait Distance Comment: 20' Gait Level of Assist: 4 Gait Assistive Device: FWW Wheelchair Distance: 150'x2 PT Nursing Home Goals Chucking Machine Set Up Operator Tool Goals PT Nursing Home Goals Time Frame: Dec 20, 2017 Transfers (B,C,W/C) (FIM): 6 Sit to Lying (QC): 6 Lying-Sitting on Side/Bed(QC): 6 Sit to Stand (QC): 6 Rollin Roll Left to Right (QC): 6 Chair/Hka-lh-[place]ph[place] Xfer(QC): 6 Car Transfer (QC): 6 Gait (FIM): 2 Distance: 50' Walk 10 feet (QC): 4 Walk 10ft-Uneven Surface(QC): 4 Walk 50ft with 2 Turns (QC): 4 Walk 150 ft (QC): 4 Gait Level of Assist: 5 Gait Assistive Device: FWW Wheelchair (FIM): 6 Distance: 150' Wheelchair Level of Assist: 6 Wheel 50 feet with 2 turns (QC: 6 PT Plan Treatment/Plan Treatment Plan: Continue Plan of Care Treatment Plan: Bed Mobility, Education, Functional Activity Kang, Functional Strength, Group Therapy, Gait, Safety, Therapeutic Exercise, Transfers Treatment Duration: Dec 20, 2017 Frequency: At least 5 of 7 days/Wk (IRF) Estimated Hrs Per Day: 1.5 hours per day Patient and/or Family Agrees t: Yes Safety Risks/Education Patient Education: Transfer Techniques, Correct Positioning, W/C Management, Disease Process, Safety Issues Teaching Recipient: Patient Teaching Methods: Demonstration, Discussion Response to Teaching: Verbalize Understanding, Return Demonstration, Reinforcement Needed Time/GCodes Time In: 800 Time Out: 900 Total Billed Treatment Time: 60 Total Billed Treatment 1,WC15m,FA25m,EX20m G Codes Necessary: TIERNEY May STAFF MINE WARFARE OFFICER Nov 30, 2017 09:04
--- NOTE | 2017-11-30 09:10 | Diagnostic Imaging Report ---
INDICATION: Aortic aneurysm. TECHNIQUE: Duplex grayscale and color Doppler flow images were recorded. No prior studies are available for comparison. The proximal aorta is obscured by bowel gas. The mid aorta is obscured by bowel gas. The distal aorta measures 1.4 cm AP by 1.4 cm transverse. The iliacs are obscured. IMPRESSION: Very limited study due to bowel gas. The distal aorta is of normal caliber. CT could be performed for better characterization of the proximal and mid abdominal aorta. Dictated by: Dictated on workstation # [id number]
--- NOTE | 2017-11-30 11:08 | Occupational Ther Daily Note ---
OT Current Status-Daily Note Subjective Pt seen in room, up in recliner, agreeable to OT. No pain mentioned. Appearance Alert, cooperative Mental Status/Objective Functional [place] Measure 0=Not Assessed/NA 4=Minimal Assistance 1=Total Assistance 5=Supervision or Setup 2=Maximal Assistance 6=Modified [place] 3=Moderate Assistance 7=Complete [place] ADL-Treatment Pt requested to shower. She transferred from recliner to w/c with SBA without using FWW, then propelled w/c to bathroom and positioned chair for shower transfer. She transferred in and out of shower with SBA, using shower bench and grab bars, w/c. She propelled w/c back to her room and locked brakes with cue. She was able to dress upper body with setup and lower body with min assist. She needed help to get cast boot off to dress L LE but was able to dress R without help, CGA when standing. Pt educ on walker hand placement when turning one hand loose to pull pants up and down, with verbal understanding. She groomer herself at sink, mod I, w/c level. When she returned from the gym, she transferred to and from [facility] over toilet with SBA, using grab bars, managing clothing well with grab bar. She transferred back into recliner with SBA as well, maintaining WB status during all transfers. Functional [place] Measure 0=Not Assessed/NA 4=Minimal Assistance 1=Total Assistance 5=Supervision or Setup 2=Maximal Assistance 6=Modified [place] 3=Moderate Assistance 7=Complete IndependenceIRFPAI Quality Coding Scale 6 Independent with activity with or without an assistive device 5 Patient requires set up or clean up by helper. Patient completes activity by themselves 4 Supervision or touching assist (CGA). [place] provide cues , steadying assist 3 The helper provides less than half the effort to complete the activity 2 The helper provides more than half the effort to complete the activity 1 Dependent. The helper does all the effort to complete an activity 7 Patient refused to complete or attempt activity 9 The patient did not perform the activity before the current illness or injury 88 Not attempted due to Medical conditions or safety concerns Eating (FIM): 6 (Has dentures and does not eat without them. Able to open packages, cut food, feed herself) Eating (QC): 6 Grooming (FIM): 6 (Mod I at sink, w/c level) Bathing (FIM): 5 (setup. washed and dried all parts, shower bench, grab bars, hand held shower. Cast boot covered with plastic bag) Upper Body (FIM): 5 (setup) Lower Body Dressing (FIM): 4 (CGA when standing to pull pants up, FWW. Pt educ weight shifting. Help to take boot off and put back on but she was able to get pants on R foot. ) Toileting (FIM): 5 (SBA, clothing management, hygiene. BSC over toilet, grab bar. ) Toilet/Commode Transfer (FIM): 5 (SBA, SPT to w/c from BSC over toilet) Shower Transfer(FIM): 5 (SBA, w/c to shower bench and back. Grab bars) Other Treatment In the gym, pt did 12 minutes bilat UE exercise on arm bike set at 25W resistance (increased resistance so backed off on time), with one brief recovery period. She also did arc activity with short extension, bolt board and pegs, all with 1# weight on each arm. She reported that doing activities with hands and arm suspended (like the bolt board) caused some discomfort in her shoulders. During exercises, she discussed that a wheelchair will not be able to fit through the door of her bathroom at home and she was willing to use a BSC in her bedroom. Education OT Patient Education: Modified ADL techniques, Progress toward Goal/Update tx plan, Purpose of tx/functional activities, Safety issues, Transfer techniques Teaching Recipient: Patient Teaching Methods: Discussion Response to Teaching: Verbalize Understanding, Return Demonstration OT Short Term Goals Short Term Goals Time Frame: Dec 06, 2017 Eating(FIM): 6 Grooming(FIM): 6 Bathing(FIM): 5 Upper Body Dressing(FIM): 5 Lower Body Dressing(FIM): 5 Toileting(FIM): 6 Transfers (B,C,W/C) (FIM): 5 Toilet/Commode Transfer(FIM): 5 Shower Transfer(FIM): 5 Additional Short Term Goals: 1-Demonstrate ADL Tasks, 2-Verbalize Understanding , 3-ImproveStrength/Kang 1=Demonstrate adherence to instructed precautions during ADL tasks. 2=Patient will verbalize/demonstrate understanding of assistive devices/ modifications for ADL. 3=Patient will improve strength/tolerance for activity to enable patient to perform ADL's. OT Transfer Man Goals Shelter Goals Time Frame: Dec 13, 2017 Eating (FIM): 6 Eating (QC): 6 Groomin Oral Hygiene (QC): 6 Bathing(FIM): 5 Shower/Bathe Self (QC): 5 Upper Body Dressing(FIM): 6 Upper Body Dressing (QC): 6 Lower Body Dressing(FIM): 6 Lower Body Dressing (QC): 6 On/Off Footwear (QC): 6 Toileting(FIM): 6 Toileting Hygiene (QC): 6 Transfers (B,C,W/C) (FIM): 6 Toilet/Commode Transfer(FIM): 6 Toilet/Commode Transfer (QC): 6 Shower Transfer(FIM): 5 Additional Goals: 1-Demonstrate ADL Tasks, 2-Verbalize Understanding, 3- ImproveStrength/Kang 1=Demonstrate adherence to instructed precautions during ADL tasks. 2=Patient will verbalize/demonstrate understanding of assistive devices/ modifications for ADL. 3=Patient will improve strength/tolerance for activity to enable patient to perform ADL's. OT Education/Plan Discharge Recommendations Plan/Recommendations: Continue POC Treatment Plan/Plan of Care Patient would benefit from OT for education, treatment and training to promote independence in ADL's, mobility, safety and/or upper extremity function for ADL' s. Plan of Care: ADL Retraining, Functional Mobility, UE Funct Exercise/Act Treatment Duration: Dec 13, 2017 Frequency: At least 5 of 7 days/Wk (IRF) Estimated Hrs Per Day: 1.5 hours per day Agreement: Yes Rehab Potential: Good Time/GCodes Start Time: 09:15 Stop Time: 10:50 Total Time Billed (hr/min): 95 Billed Treatment Time visit, 65 minutes ADL, 30 minutes exercise JESUSITA MOISE OT Nov 30, 2017 11:08
--- NOTE | 2017-11-30 12:02 | Physical Therapy Daily Note ---
PT Daily Note-Current Subjective Agrees to Rx. Pain Numeric Pain Scale: 0-No Pain Mental Status Patient Orientation: Normal For Age Attachments: Other-See Comments (boot LLE) Transfers Functional [place] Measure 0=Not Assessed/NA 4=Minimal Assistance 1=Total Assistance 5=Supervision or Setup 2=Maximal Assistance 6=Modified [place] 3=Moderate Assistance 7=Complete IndependenceIRFPAI Quality Coding Scale 6 Independent with activity with or without an assistive device 5 Patient requires set up or clean up by helper. Patient completes activity by themselves 4 Supervision or touching assist (CGA). [place] provide cues , steadying assist 3 The helper provides less than half the effort to complete the activity 2 The helper provides more than half the effort to complete the activity 1 Dependent. The helper does all the effort to complete an activity 7 Patient refused to complete or attempt activity 9 The patient did not perform the activity before the current illness or injury 88 Not attempted due to Medical conditions or safety concerns all TRFs w/c to Rx table and w/c to recliner, SBA, maintains NWB well Weight Bearing Right Lower Extremity: Right Full Weight Bearing Left Lower Extremity: Left Non Weight Bearing Wheelchair Training Does the Pt Use a Wheelchair?: Yes Type of Wheelchair: Manual [id number], practiced and instructed in tight turns, retro etc, managing in tight spots etc Exercises Supine Ex: Bridging (single leg), Ankle pumps, Pelvic tilt, Quad Set, Rolling, Glut sets, Heel Slides, Short Arc Quads, Scooting, Straight leg raise, Hip abd/ add Supine Reps: 15 Seated Therapy Exercises: Long arc quads, Hip flexion Seated Reps: 15 Assessment Current Status: Good Progress PT Short Term Goals Short Term Goals Time Frame: Dec 06, 2017 Transfers (B,C,W/C) (FIM): 5 Gait (FIM): 1 Gait Distance Comment: 20' Gait Level of Assist: 4 Gait Assistive Device: FWW Wheelchair Distance: 150'x2 PT Service Order Clerk Goals Service Order Clerk Goals PT Group Home Goals Time Frame: Dec 20, 2017 Transfers (B,C,W/C) (FIM): 6 Sit to Lying (QC): 6 Lying-Sitting on Side/Bed(QC): 6 Sit to Stand (QC): 6 Rollin Roll Left to Right (QC): 6 Chair/Btn-wm-Txdna Xfer(QC): 6 Car Transfer (QC): 6 Gait (FIM): 2 Distance: 50' Walk 10 feet (QC): 4 Walk 10ft-Uneven Surface(QC): 4 Walk 50ft with 2 Turns (QC): 4 Walk 150 ft (QC): 4 Gait Level of Assist: 5 Gait Assistive Device: FWW Wheelchair (FIM): 6 Distance: 150' Wheelchair Level of Assist: 6 Wheel 50 feet with 2 turns (QC: 6 PT Plan Treatment/Plan Treatment Plan: Continue Plan of Care Treatment Plan: Bed Mobility, Education, Functional Activity Kang, Functional Strength, Group Therapy, Gait, Safety, Therapeutic Exercise, Transfers Treatment Duration: Dec 20, 2017 Frequency: At least 5 of 7 days/Wk (IRF) Estimated Hrs Per Day: 1.5 hours per day Patient and/or Family Agrees t: Yes Safety Risks/Education Patient Education: Transfer Techniques, Correct Positioning, W/C Management, Disease Process, Safety Issues Teaching Recipient: Patient Teaching Methods: Demonstration, Discussion Response to Teaching: Verbalize Understanding, Return Demonstration, Reinforcement Needed Time/GCodes Time In: 1130 Time Out: 1200 Total Billed Treatment Time: 30 Total Billed Treatment 1,WC15m,EX15m G Codes Necessary: TIERNEY May ASSISTANT PURCHASING MANAGER Nov 30, 2017 12:01
--- NOTE | 2017-11-30 14:42 | PM & R (SOAP) Progress Note ---
Subjective This was a face to face visit with the patient. Date Seen by Provider: Nov 30, 2017 Time Seen by Provider: 07:50 Subjective/Events-last exam Patient was seen in her room this AM Patient SBA for transfers.Progressing well with therapies Review of Systems Musculoskeletal: foot pain Objective Physician Exam Last Set of Vital Signs Vital Signs Date Time Temp Pulse Resp B/P (MAP) Pulse Ox O2 Delivery O2 Flow Rate FiO2 11/30/17 09:29 Room Air 11/30/17 06:13 98.4 64 18 121/70 (87) 94 Capillary Refill : I&O Intake and Output 11/30/17 00:00 Intake Total 1350 ml Balance 1350 ml Intake Oral 1350 ml # Voids 9 # Bowel Movements 1 General: Alert, Oriented X3, Cooperative, No Acute Distress HEENT: Atraumatic, PERRLA, EOMI, Mucous Memb Moist/[place] Neck: Supple, No JVD Lungs: Clear to Auscultation Heart: Regular Rate Abdomen: Normal Bowel Sounds, Soft, No Tenderness Extremities: Other (RT Foot in boot) Neuro: Other (Strength 4/5 BUES and LLE RT limited by boot Sensation grossly intact to touch) Results Lab Data Laboratory Tests 11/29/17 06:37: White Blood Count 8.6, Red Blood Count 4.05L, Hemoglobin 11.0L, Hematocrit 34L, Mean Corpuscular Volume 84, Mean Corpuscular Hemoglobin 27, Mean Corpuscular Hemoglobin Concent 32, Red Cell Distribution Width 19.6H, Platelet Count 201, Mean Platelet Volume 10.6H, Neutrophils (%) (Auto) 60, Lymphocytes (%) (Auto) 26 , Monocytes (%) (Auto) 10, Eosinophils (%) (Auto) 3, Basophils (%) (Auto) 0, Neutrophils # (Auto) 5.2, Lymphocytes # (Auto) 2.3, Monocytes # (Auto) 0.9, Eosinophils # (Auto) 0.3, Basophils # (Auto) 0.0, Sodium Level 141, Potassium Level 3.9, Chloride Level 105, Carbon Dioxide Level 26, Anion Gap 10, Blood Urea Nitrogen 10, Creatinine 0.77, Estimat Glomerular Filtration Rate > 60, BUN/ Creatinine Ratio 13, Glucose Level 89, Calcium Level 8.8, Total Bilirubin 0.4, Aspartate Amino Transf (AST/SGOT) 19, Alanine Aminotransferase (ALT/SGPT) 12, Alkaline Phosphatase 54, Total Protein 6.1L, Albumin 3.4 11/29/17 09:55: Urine Color YELLOW, Urine Clarity CLEAR, Urine pH 8, Urine Specific [place] 1.010L, Urine Protein NEGATIVE, Urine Glucose (UA) NEGATIVE, Urine Ketones NEGATIVE, Urine Nitrite NEGATIVE, Urine Bilirubin NEGATIVE, Urine Urobilinogen NORMAL, Urine Leukocyte Esterase NEGATIVE, Urine RBC (Auto) 1+H, Urine RBC 0-2, Urine WBC NONE, Urine Squamous Epithelial Cells RARE, Urine Crystals PRESENTH, Urine Amorphous Sediment RARE KATINA PHOSPHATEH, Urine Bacteria NEGATIVE, Urine Casts NONE, Urine Mucus NEGATIVE, Urine Culture Indicated NO Assessment/Plan Assessment and Plan RA of the spine left hip and feet s/p surgery of foor DPM NWB OSH Chronic steroid usage prednisone adjusted UTI on antibiotic Gerd with esophagitis on PPI Hypothyroidism on replacement Thoracic aorta aneurysm without rupture Plan Continue PT/OT Team Conference held earlier today-See report for full functional update and POC and ELOS (1) Rheumatoid arthritis Qualifiers: Status: Acute Co-Morbidities that are continuing to impact the rehab process: (include details ) TOM ORTIZ MD Nov 30, 2017 14:42
[2017-11-30 17:14] VITALS: BP 121/66
[2017-11-30] MEDS: ALPRAZolam 0.5 MG (XANAX) TAB PO SCH (22:10)
[2017-11-30] MEDS: ESTRADIOL VAGINAL CREAM 42.5 GM (ESTRACE) VG SCH (22:11)
[2017-12-01 06:09] VITALS: BP 143/68
[2017-12-01] MEDS: LACTOBACILLUS Acidoph/Bulgar (LACTINEX/FLORANEX) TAB PO SCH ×3 (06:27→16:41)
[2017-12-01] MEDS: predniSONE 5 MG TAB PO SCH (06:27)
[2017-12-01] MEDS: LEVOTHYROXINE 75 MCG (LEVOTHROID) TABLET PO SCH (06:27)
[2017-12-01] MEDS: predniSONE 1 MG TAB PO SCH (06:28)
[2017-12-01] MEDS: MULTIVIT W/MINERALS TAB (THERAGRAN M) PO SCH (06:28)
[2017-12-01] MEDS: PANTOPRAZOLE 40 MG (PROTONIX) TAB PO SCH (06:28)
[2017-12-01] MEDS: ASPIRIN E.C. 81 MG (ECOTRIN) TAB PO SCH (08:27)
[2017-12-01] MEDS: FLUTICASONE NASAL SPRAY (FLONASE) 16 GM BTL NS SCH (08:27)
[2017-12-01] MEDS: POLYETHYLENE GLYCOL 17 GM (MIRALAX) PACK PO SCH ×2 (08:27→21:08)
[2017-12-01] MEDS: VITAMIN D3 1,000 UNITS (CHOLECALCIFEROL) TABLET PO SCH (08:27)
[2017-12-01] MEDS: CIPROFLOXACIN 500 MG (CIPRO) TABLET PO SCH ×2 (08:27→21:08)
[2017-12-01] MEDS: ISOSORBIDE MONONITRATE 30 MG (IMDUR) TAB PO SCH (08:27)
--- NOTE | 2017-12-01 08:33 | Progress Note (SOAP) ---
Subjective Time Seen by Provider: 08:30 Subjective/Events-last exam Rheumatoid arthritis. Surgery recently. Patient learning how to move from one place to another. Patient voices no complaints today Objective Exam Vital Signs Date Time Temp Pulse Resp B/P (MAP) Pulse Ox O2 Delivery O2 Flow Rate FiO2 12/01/17 06:09 96.8 58 16 143/68 (93) 98 Room Air 11/30/17 21:00 Room Air 11/30/17 17:14 98.2 67 18 121/66 (84) 95 Room Air 11/30/17 09:29 Room Air I & O 12/01/17 07:00 Intake Total 1550 ml Balance 1550 ml Capillary Refill : General Appearance: No Apparent Distress, WD/WN Assessment/Plan Assessment/Plan Assess & Plan/Chief Complaint Rheumatoid arthritis. Recent foot surgery. Nonweightbearing. Hypothyroid. Skipped heartbeats. Aortic aneurysm 4 cm 1 year ago. . 11/30/17. Rheumatoid arthritis. Recent foot surgery. 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 . 12/01/17. Rheumatoid arthritis.. Recent foot surgery. Patient learn to take care of herself. Hypothyroid. Nonweightbearing. Clinical Quality Measures DVT/VTE Risk/Contraindication: Risk Factor Score Per Nursin RFS Level Per Nursing on Admit: 4+=Very High LISA HARDING DO Dec 01, 2017 08:33
--- NOTE | 2017-12-01 10:43 | Physical Therapy Daily Note ---
PT Daily Note-Current Subjective Pt laying Supine in bed upon arrival. Pt reports feeling a little fatigued this morning but slept okay last night. Pt agrees to PT. Mental Status Patient Orientation: Person, Place, Time, Situation Attachments: Other-See Comments (R boot) Transfers Functional [place] Measure 0=Not Assessed/NA 4=Minimal Assistance 1=Total Assistance 5=Supervision or Setup 2=Maximal Assistance 6=Modified [place] 3=Moderate Assistance 7=Complete IndependenceIRFPAI Quality Coding Scale 6 Independent with activity with or without an assistive device 5 Patient requires set up or clean up by helper. Patient completes activity by themselves 4 Supervision or touching assist (CGA). [place] provide cues , steadying assist 3 The helper provides less than half the effort to complete the activity 2 The helper provides more than half the effort to complete the activity 1 Dependent. The helper does all the effort to complete an activity 7 Patient refused to complete or attempt activity 9 The patient did not perform the activity before the current illness or injury 88 Not attempted due to Medical conditions or safety concerns Scootin Rollin Roll Left to Right (QC): 5 Supine to/from Sit: 5 Sit to/from Stand: 5 Sit to Lying (QC): 5 Sit to Stand (QC): 5 Weight Bearing Right Lower Extremity: Right Full Weight Bearing Left Lower Extremity: Left Non Weight Bearing Wheelchair Training Does the Pt Use a Wheelchair?: Yes Wheelchair Distance: 3=150 ft Distance: 150' Wheelchair Level of Assist: 5 Wheel 50 ft with 2 turns (QC): 5 Wheel 150 ft (QC): 5 Type of Wheelchair: Manual Exercises Supine Ex: Ankle pumps, Quad Set, Glut sets, Heel Slides, Hip abd/add Supine Reps: 15 Seated Therapy Exercises: Long arc quads, Hip flexion, Kicking activity Seated Reps: 15 Treatments Pt transfers from Supine to EOB then SPT to WC at SBA. Pt propels WCH to restroom then SPT to toilet. Pt completes toileting and pericare at SBA. Pt propels WCH in hallway then to Therapy Gym. Pt completes Seated & Supine Ex. Pt SPT back to [facility] and propels WCH back to room to rest at end of tx. Pt has all needs met at end of tx, including call light. Assessment Current Status: Good Progress Pt is getting stronger and more independent/safe with transfers and WCH mobility. PT Short Term Goals Short Term Goals Time Frame: Dec 06, 2017 Transfers (B,C,W/C) (FIM): 5 Gait (FIM): 1 Gait Distance Comment: 20' Gait Level of Assist: 4 Gait Assistive Device: FWW Wheelchair Distance: 150'x2 PT Crew Leader Goals Crew Leader Goals PT Intermediate Goals Time Frame: Dec 20, 2017 Transfers (B,C,W/C) (FIM): 6 Sit to Lying (QC): 6 Lying-Sitting on Side/Bed(QC): 6 Sit to Stand (QC): 6 Rollin Roll Left to Right (QC): 6 Chair/Kqy-hp-Asqbl Xfer(QC): 6 Car Transfer (QC): 6 Gait (FIM): 2 Distance: 50' Walk 10 feet (QC): 4 Walk 10ft-Uneven Surface(QC): 4 Walk 50ft with 2 Turns (QC): 4 Walk 150 ft (QC): 4 Gait Level of Assist: 5 Gait Assistive Device: FWW Wheelchair (FIM): 6 Distance: 150' Wheelchair Level of Assist: 6 Wheel 50 feet with 2 turns (QC: 6 PT Plan Problem List Problem List: Activity Tolerance, Functional Strength, Balance, Gait Treatment/Plan Treatment Plan: Continue Plan of Care Treatment Plan: Bed Mobility, Education, Functional Activity Kang, Functional Strength, Group Therapy, Gait, Safety, Therapeutic Exercise, Transfers Treatment Duration: Dec 20, 2017 Frequency: At least 5 of 7 days/Wk (IRF) Estimated Hrs Per Day: 1.5 hours per day Patient and/or Family Agrees t: Yes Safety Risks/Education Patient Education: Correct Positioning, W/C Management, Safety Issues Teaching Recipient: Patient Teaching Methods: Discussion Response to Teaching: Verbalize Understanding Time/GCodes Time In: 800 Time Out: 900 Total Billed Treatment Time: 60 Total Billed Treatment 1, WCH (10m), FA x2 (30m) & EX (20m) G Codes Necessary: ANDREW Interiano SEARCH ENGINE MARKETING MANAGER Dec 01, 2017 10:43
--- NOTE | 2017-12-01 11:45 | Occupational Ther Daily Note ---
OT Current Status-Daily Note Subjective Pt seen in room, up in recliner, agreeable to OT. No pain mentioned. Appearance Alert, cooperative Mental Status/Objective Functional [place] Measure 0=Not Assessed/NA 4=Minimal Assistance 1=Total Assistance 5=Supervision or Setup 2=Maximal Assistance 6=Modified [place] 3=Moderate Assistance 7=Complete [place] ADL-Treatment Pt said that she just didn't feel well but still wanted to shower. She transferred from recliner to w/c, then propelled herself to the bathroom, where she toileted, then showered. After bathing, she went back to her room to dress. Worked on doffing and donning pants over cast boot, using of senior asic engineer and dressing stick during dressing, and balancing with FWW while standing to pull pants up, releasing one hand and then the other. She propelled to bathroom and stood at sink, balancing with FWW and leaning against sink, to brush teeth and comb hair. Pt reported that she felt much more comfortable with pulling pants up after practice. Pt educ on use of transfer tub bench which may work to get her into shower at her house. Functional [place] Measure 0=Not Assessed/NA 4=Minimal Assistance 1=Total Assistance 5=Supervision or Setup 2=Maximal Assistance 6=Modified [place] 3=Moderate Assistance 7=Complete IndependenceIRFPAI Quality Coding Scale 6 Independent with activity with or without an assistive device 5 Patient requires set up or clean up by helper. Patient completes activity by themselves 4 Supervision or touching assist (CGA). [place] provide cues , steadying assist 3 The helper provides less than half the effort to complete the activity 2 The helper provides more than half the effort to complete the activity 1 Dependent. The helper does all the effort to complete an activity 7 Patient refused to complete or attempt activity 9 The patient did not perform the activity before the current illness or injury 88 Not attempted due to Medical conditions or safety concerns Grooming (FIM): 5 (SBA, standing at sink to brush teeth and comb hair. FWW and sink for balance) Bathing (FIM): 6 (Washed and dried all parts, turned water on/off and retrieved towels from bar. Shower bench, grab bars, hand held shower. L lower legs in cast boot and plastic) Upper Body (FIM): 6 (Doffed and donned clothing, including bra) Lower Body Dressing (FIM): 4 (Min assist to get pants off cast boot, able to get pants on over cast boot but pants teneded to sick on velcro straps. SBA standing to pull pants up, taking one hand and then the other off walker. ) Toileting (FIM): 5 (SBA standing to pull pants up and down, using grab bars. BSc over toilet. Managed clothing and hygiene) Transfers (B, C, W/C) (FIM): 5 (SBA transferrng from recliner to w/c and back) Toilet/Commode Transfer (FIM): 5 (SBA transferring from w/c to BSC over toilet and back.) Shower Transfer(FIM): 5 (SBA getting on/off shower bench, from w/c. grab bars) Other Treatment Pt propelled herself to gym, positioned chair at table, did 12 minutes bila UE exercise on arm bike set at 25W resistance, with one brief recovery break. To strengthen arms to help with standing during ADLs. She propelled herself back to room and transferred into recliner with SBA. She maintained WB status throughout all ADLs. Pt left up in recliner, all needs met. Education OT Patient Education: Modified ADL techniques, Purpose of tx/functional activities, Rehab process, Transfer techniques, Use of adapted equipment Teaching Recipient: Patient Teaching Methods: Demonstration, Discussion Response to Teaching: Return Demonstration OT Short Term Goals Short Term Goals Time Frame: Dec 06, 2017 Eating(FIM): 6 Grooming(FIM): 6 Bathing(FIM): 5 Upper Body Dressing(FIM): 5 Lower Body Dressing(FIM): 5 Toileting(FIM): 6 Transfers (B,C,W/C) (FIM): 5 Toilet/Commode Transfer(FIM): 5 Shower Transfer(FIM): 5 Additional Short Term Goals: 1-Demonstrate ADL Tasks, 2-Verbalize Understanding , 3-ImproveStrength/Kang 1=Demonstrate adherence to instructed precautions during ADL tasks. 2=Patient will verbalize/demonstrate understanding of assistive devices/ modifications for ADL. 3=Patient will improve strength/tolerance for activity to enable patient to perform ADL's. OT Detention Goals Wealth Management Consultant Goals Time Frame: Dec 13, 2017 Eating (FIM): 6 Eating (QC): 6 Groomin Oral Hygiene (QC): 6 Bathing(FIM): 5 Shower/Bathe Self (QC): 5 Upper Body Dressing(FIM): 6 Upper Body Dressing (QC): 6 Lower Body Dressing(FIM): 6 Lower Body Dressing (QC): 6 On/Off Footwear (QC): 6 Toileting(FIM): 6 Toileting Hygiene (QC): 6 Transfers (B,C,W/C) (FIM): 6 Toilet/Commode Transfer(FIM): 6 Toilet/Commode Transfer (QC): 6 Shower Transfer(FIM): 5 Additional Goals: 1-Demonstrate ADL Tasks, 2-Verbalize Understanding, 3- ImproveStrength/Kang 1=Demonstrate adherence to instructed precautions during ADL tasks. 2=Patient will verbalize/demonstrate understanding of assistive devices/ modifications for ADL. 3=Patient will improve strength/tolerance for activity to enable patient to perform ADL's. OT Education/Plan Discharge Recommendations Plan/Recommendations: Continue POC Treatment Plan/Plan of Care Patient would benefit from OT for education, treatment and training to promote independence in ADL's, mobility, safety and/or upper extremity function for ADL' s. Plan of Care: ADL Retraining, Functional Mobility, UE Funct Exercise/Act Treatment Duration: Dec 13, 2017 Frequency: At least 5 of 7 days/Wk (IRF) Estimated Hrs Per Day: 1.5 hours per day Agreement: Yes Rehab Potential: Good Time/GCodes Start Time: 09:15 Stop Time: 10:45 Total Time Billed (hr/min): 90 Billed Treatment Time visit, 60 minutes ADL, 30 minutes exercise JESUSITA MOISE OT Dec 01, 2017 11:45
--- NOTE | 2017-12-01 14:04 | Physical Therapy Daily Note ---
PT Daily Note-Current Subjective Pt is in restroom upon arrival. Pt agrees to PT. Pain Numeric Pain Scale: 3 Location: Left Location Body Site: Ankle Pain Description: Ache Mental Status Patient Orientation: Person, Place, Situation Transfers Functional [place] Measure 0=Not Assessed/NA 4=Minimal Assistance 1=Total Assistance 5=Supervision or Setup 2=Maximal Assistance 6=Modified [place] 3=Moderate Assistance 7=Complete IndependenceIRFPAI Quality Coding Scale 6 Independent with activity with or without an assistive device 5 Patient requires set up or clean up by helper. Patient completes activity by themselves 4 Supervision or touching assist (CGA). [place] provide cues , steadying assist 3 The helper provides less than half the effort to complete the activity 2 The helper provides more than half the effort to complete the activity 1 Dependent. The helper does all the effort to complete an activity 7 Patient refused to complete or attempt activity 9 The patient did not perform the activity before the current illness or injury 88 Not attempted due to Medical conditions or safety concerns Scootin Rollin Roll Left to Right (QC): 5 Supine to/from Sit: 5 Sit to/from Stand: 5 Sit to Lying (QC): 5 Sit to Stand (QC): 5 Chair/Qsp-pz-Uxesb Xfer(QC): 5 Bed to/from Chair: 5 Weight Bearing Right Lower Extremity: Right Full Weight Bearing Left Lower Extremity: Left Non Weight Bearing Wheelchair Training Does the Pt Use a Wheelchair?: Yes Wheelchair Distance: 1=up to 49 ft Distance: 30' Wheelchair Level of Assist: 5 Type of Wheelchair: Manual Exercises Supine Ex: Ankle pumps, Quad Set, Glut sets, Heel Slides, Straight leg raise, Hip abd/add Supine Reps: 15 Treatments Pt SPT to WCH after finishing toileting. Pt propels WCH to EOB and SPT. Pt completes Seated Ex at EOB then transfers to Supine and completes Supine Ex. Pt resting at end of tx with all needs met, including call light. Assessment Current Status: Good Progress Pt fatigues easy and continues to request to have boot off, advised it has to be 's call. PT Short Term Goals Short Term Goals Time Frame: Dec 06, 2017 Transfers (B,C,W/C) (FIM): 5 Gait (FIM): 1 Gait Distance Comment: 20' Gait Level of Assist: 4 Gait Assistive Device: FWW Wheelchair Distance: 150' PT Group Home Goals Registered Nurse Ambulatory Goals PT Registered Nurse Ambulatory Goals Time Frame: Dec 20, 2017 Transfers (B,C,W/C) (FIM): 6 Sit to Lying (QC): 6 Lying-Sitting on Side/Bed(QC): 6 Sit to Stand (QC): 6 Rollin Roll Left to Right (QC): 6 Chair/Yyn-mu-Fijpu Xfer(QC): 6 Car Transfer (QC): 6 Gait (FIM): 2 Distance: 50' Walk 10 feet (QC): 4 Walk 10ft-Uneven Surface(QC): 4 Walk 50ft with 2 Turns (QC): 4 Walk 150 ft (QC): 4 Gait Level of Assist: 5 Gait Assistive Device: FWW Wheelchair (FIM): 6 Distance: 150' Wheelchair Level of Assist: 6 Wheel 50 feet with 2 turns (QC: 6 PT Plan Problem List Problem List: Activity Tolerance, Functional Strength, Gait Treatment/Plan Treatment Plan: Continue Plan of Care Treatment Plan: Bed Mobility, Education, Functional Activity Kang, Functional Strength, Group Therapy, Gait, Safety, Therapeutic Exercise, Transfers Treatment Duration: Dec 20, 2017 Frequency: At least 5 of 7 days/Wk (IRF) Estimated Hrs Per Day: 1.5 hours per day Patient and/or Family Agrees t: Yes Safety Risks/Education Patient Education: Transfer Techniques, Correct Positioning, Safety Issues Teaching Recipient: Patient Teaching Methods: Discussion Response to Teaching: Verbalize Understanding Time/GCodes Time In: 1300 Time Out: 1335 Total Billed Treatment Time: 35 Total Billed Treatment 1, FA (15m) & EX (20m) G Codes Necessary: ANDREW Interiano PTA Dec 01, 2017 14:04
--- NOTE | 2017-12-01 14:19 | PM & R (SOAP) Progress Note ---
Subjective This was a face to face visit with the patient. Date Seen by Provider: Dec 01, 2017 Time Seen by Provider: 07:55 Subjective/Events-last exam Patient was seen in her room this AM Progressing well with therapies Patient SBA for transfers.Pain control adequate Review of Systems Musculoskeletal: leg pain Objective Physician Exam Last Set of Vital Signs Vital Signs Date Time Temp Pulse Resp B/P (MAP) Pulse Ox O2 Delivery O2 Flow Rate FiO2 12/01/17 09:22 Room Air 12/01/17 06:09 96.8 58 16 143/68 (93) 98 Capillary Refill : I&O Intake and Output 12/01/17 00:00 Intake Total 1600 ml Balance 1600 ml Intake Oral 1600 ml # Voids 9 # Bowel Movements 1 General: Alert, Oriented X3, Cooperative, No Acute Distress HEENT: Atraumatic, PERRLA, EOMI, Mucous Memb Moist/Crum Neck: Supple, No JVD Lungs: Clear to Auscultation Heart: Regular Rate Abdomen: Normal Bowel Sounds, Soft, No Tenderness Extremities: Other (RT Foot in boot) Neuro: Other (Strength 4/5 BUES and LLE RT limited by boot Sensation grossly intact to touch) Results Lab Data Laboratory Tests 11/29/17 06:37: White Blood Count 8.6, Red Blood Count 4.05L, Hemoglobin 11.0L, Hematocrit 34L, Mean Corpuscular Volume 84, Mean Corpuscular Hemoglobin 27, Mean Corpuscular Hemoglobin Concent 32, Red Cell Distribution Width 19.6H, Platelet Count 201, Mean Platelet Volume 10.6H, Neutrophils (%) (Auto) 60, Lymphocytes (%) (Auto) 26 , Monocytes (%) (Auto) 10, Eosinophils (%) (Auto) 3, Basophils (%) (Auto) 0, Neutrophils # (Auto) 5.2, Lymphocytes # (Auto) 2.3, Monocytes # (Auto) 0.9, Eosinophils # (Auto) 0.3, Basophils # (Auto) 0.0, Sodium Level 141, Potassium Level 3.9, Chloride Level 105, Carbon Dioxide Level 26, Anion Gap 10, Blood Urea Nitrogen 10, Creatinine 0.77, Estimat Glomerular Filtration Rate > 60, BUN/ Creatinine Ratio 13, Glucose Level 89, Calcium Level 8.8, Total Bilirubin 0.4, Aspartate Amino Transf (AST/SGOT) 19, Alanine Aminotransferase (ALT/SGPT) 12, Alkaline Phosphatase 54, Total Protein 6.1L, Albumin 3.4 11/29/17 09:55: Urine Color YELLOW, Urine Clarity CLEAR, Urine pH 8, Urine Specific [place] 1.010L, Urine Protein NEGATIVE, Urine Glucose (UA) NEGATIVE, Urine Ketones NEGATIVE, Urine Nitrite NEGATIVE, Urine Bilirubin NEGATIVE, Urine Urobilinogen NORMAL, Urine Leukocyte Esterase NEGATIVE, Urine RBC (Auto) 1+H, Urine RBC 0-2, Urine WBC NONE, Urine Squamous Epithelial Cells RARE, Urine Crystals PRESENTH, Urine Amorphous Sediment RARE KATINA PHOSPHATEH, Urine Bacteria NEGATIVE, Urine Casts NONE, Urine Mucus NEGATIVE, Urine Culture Indicated NO Assessment/Plan Assessment and Plan RA of the spine knees and feet s/p Foot surgery as per H&P OSH DPM NWB LLE Chronic steroid usage UTI on antibiotic Gerd with esophagitis on PPI Hypothyroidism on replacement 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
[2017-12-01 15:21] VITALS: BP 143/70
[2017-12-01] MEDS: ACETAMINOPHEN 325 MG TABLET PO PRN (16:41)
--- NOTE | 2017-12-01 19:44 | Individualized Plan of Care ---
Individualized Plan of Care Rehab Nursing IPOC Order Admission Date Nov 28, 2017 at 17:21 Current Orders Orders Heart Healthy (11/28/17 Lunch) Ambulate TID (11/28/17 17:54) Sequential Compression Device 08,20 (11/28/17 17:54) Dvt/Vte Risk - Notifiy Physici 08 (11/28/17 17:54) Admission Order(Inpt,Obs,Sdc) (11/28/17 17:40) Vital Signs: Routine (Order) 08,16,00 (11/28/17 17:40) Welt Pocket Machine Operator-Inpt Rehab Con (11/28/17 17:40) Rehab Nursing Orders-Ipoc (11/28/17 17:40) Physical Therapy Rehab Orders (11/28/17 17:40) Occupational Therapy Rehab Ord (11/28/17 17:40) Speech Therapy Rehab Orders (11/28/17 17:40) General/Regular (11/29/17 Breakfast) Turn And Reposition Q2HR (11/28/17 17:40) Intake & Output 06,14,22 (11/28/17 17:40) Precautions (Aru) (11/28/17 17:40) Weekly Weight (Lbs) WEEK (11/28/17 17:40) Acetaminophen Tablet/Caplet (Tylenol T (11/28/17 17:45) Oxycodone/Apap 5/325mg Tablet (Percocet (11/28/17 17:45) Alprazolam Tablet (Xanax Tablet) (11/29/17 09:00) Prednisone Tablet (Deltasone Tablet) (11/29/17 07:00) Aspirin Enteric Coated Tablet (Ecotrin T (11/29/17 09:00) Carisoprodol Tablet (Soma Tablet) (11/28/17 17:45) Fluticasone Nasal Bandana (Flonase Nasal S (11/29/17 09:00) Isosorbide Mononitrate Tablet (Imdur Tab (11/29/17 09:00) Levothyroxine Tablet (Synthroid Tablet) (11/29/17 06:30) Therapeutic Multivitamin Tab (Vitamins, (11/29/17 07:00) Pantoprazole Tablet (Protonix Tablet) (11/29/17 07:00) Lactobacillus/Bulgar[place] Tab (Lactinex (11/29/17 06:00) Cholecalciferol Capsule/Tablet (Vitamin (11/29/17 09:00) Pharmacy Communication (Pharmacy Communi (11/28/17 17:45) Follow-Up Appointment (11/28/17 18:14) Ciprofloxacin Tablet (Cipro Tablet) (12/03/17 09:00) Weight Bearing Status (11/28/17 18:39) Estradiol Vaginal Cream (Estrace Vaginal (11/28/17 21:00) Consult Physician (11/28/17 19:06) Cbc With Automated Diff (11/29/17 06:00) Comprehensive Metabolic Panel (11/29/17 06:00) Polyethylene Glycol Powder Pkt (Miralax (11/28/17 21:00) Alprazolam Tablet (Xanax Tablet) (11/28/17 20:47) Ciprofloxacin Tablet (Cipro Tablet) (11/28/17 20:47) Alprazolam Tablet (Xanax Tablet) (11/28/17 21:00) Ciprofloxacin Tablet (Cipro Tablet) (11/29/17 09:00) Hip, Left, 2 Views (11/29/17 08:42) Ua Culture If Indicated (11/29/17 09:58) Ekg Tracing (11/29/17 08:42) Aorta Sono 15350 (11/30/17 07:30) Patient Visit (11/29/17 ) Speech Sound Lang Comp (11/29/17 ) Polyethylene Glycol Powder Pkt (Miralax (11/29/17 09:33) Prednisone Tablet (Deltasone Tablet) (11/30/17 07:00) Patient Visit (11/29/17 ) Pt Eval Moderate Complexity (11/29/17 ) Functional Activities, Ea 15 (11/29/17 ) Exercise Therap, Ea 15 Min (11/29/17 ) Nursing Communication (Order) (11/29/17 12:47) Ct Pelvis Wo (11/29/17 13:00) Prednisone Tablet (Deltasone Tablet) (11/30/17 07:00) Prednisone Tablet (Deltasone Tablet) (11/30/17 07:00) Patient Visit (11/29/17 ) Exercise Therap, Ea 15 Min (11/29/17 ) Functional Activities, Ea 15 (11/29/17 ) Prednisone Tablet (Deltasone Tablet) (11/29/17 21:10) Prednisone Tablet (Deltasone Tablet) (11/29/17 21:45) Patient Visit (11/30/17 ) Exercise Therap, Ea 15 Min (11/30/17 ) Wheelchair Mgmt/Propulsn 15min (11/30/17 ) Functional Activities, Ea 15 (11/30/17 ) Patient Visit (12/01/17 ) Wheelchair Mgmt/Propulsn 15min (12/01/17 ) Functional Activities, Ea 15 (12/01/17 ) Exercise Therap, Ea 15 Min (12/01/17 ) Rehab Nursing Orders: Ongoing Assess. of Cognitive Status, Ongoing Assess. of Function Status, Disease Management & Educaiton, DVT Prophylaxis, Fall Prevention, Fluid/Electrolyte/Nutrition Mgmt, Infection Prevention, Medication Management & Education, Management of Risks & Complications, Management of Skin Intergrity, Nutrition Management, Pain Management, Patient/Family Support PT IPOC Problem List: Activity Tolerance, Functional Strength, Gait Treatment Plan: Continue Plan of Care Bed Mobility, Education, Functional Activity Kang, Functional Strength, Group Therapy, Gait, Safety, Therapeutic Exercise, Transfers Treatment Duration: Dec 20, 2017 Frequency: At least 5 of 7 days/Wk (IRF) Estimated Hrs Per Day: 1.5 hours per day OT IPOC Problems: Decreased Activ Tolerance, Impaired I ADL's, Impaired Self-Care Skills OT Treatment, Training and Edu: Yes Plan of Care: ADL Retraining, Functional Mobility, UE Funct Exercise/Act Treatment Duration: Dec 13, 2017 Frequency: At least 5 of 7 days/Wk (IRF) Estimated Hrs Per Day: 1.[address] IPOC Speech Therapy Treatment Plan: Discontinue ST Treatment Duration: Dec 01, 2017 Frequency: Modified Program (IRF) Estimated Hrs Per Day: Other Welt Pocket Machine Operator/Case Mgmt Welt Pocket Machine Operator/Case Managemen: Discharge Planning, Patient/Family Counseling Dietitian/Seconds Inspector Dietitian/Seconds Inspector to monitor nutritional status and make changes and/or recommendations as needed and work with speech pathology on dietary upgrades as the occur. Physician IPOC Medical Issues being managed closely and that require the 24 hour availability of a physician: RA Postop anemia UTI Gerd with esophagitis Hypothroidism on replacement RA involving the spine feet and hips [facility] code 06.1 Etiologic DX S/P left foot surgery Medical Issues: Bowel/Bladder Function, DVT Prophylaxis, Falls Precautions, Infection Protection, Pain Management, Weight Bearing Precautions, Wound Care, Other (List) (as per above) Brief Synthesis of Preadmission Screen, Post-Admission Evaluation, and Therapy Evaluations: 78 yo female s/p Left foot surgery for RA involving the Spine hips and feet who had Left foot surgery for complications of RA.Had been Modified Independent before this Has a supportive family Medical Prognosis: Good Anticipated Length of Stay: 12-07-17 Modified Independent to supervision for adls and Mobility skills at the W/C level of care due to NWB status LLE Anticipated d/c Destination: Home with [facility] and family TOM ORTIZ MD Dec 01, 2017 19:44
[2017-12-01] MEDS: ALPRAZolam 0.5 MG (XANAX) TAB PO SCH (21:08)
[2017-12-02 05:31] VITALS: BP 102/64
[2017-12-02] MEDS: LEVOTHYROXINE 75 MCG (LEVOTHROID) TABLET PO SCH (05:33)
[2017-12-02] MEDS: PANTOPRAZOLE 40 MG (PROTONIX) TAB PO SCH (05:33)
[2017-12-02] MEDS: predniSONE 5 MG TAB PO SCH (06:36)
[2017-12-02] MEDS: predniSONE 1 MG TAB PO SCH (06:36)
[2017-12-02] MEDS: LACTOBACILLUS Acidoph/Bulgar (LACTINEX/FLORANEX) TAB PO SCH ×3 (06:36→16:49)
[2017-12-02] MEDS: MULTIVIT W/MINERALS TAB (THERAGRAN M) PO SCH (06:36)
--- NOTE | 2017-12-02 08:10 | Progress Note (SOAP) ---
Subjective Time Seen by Provider: 08:10 Subjective/Events-last exam Patient feel she is doing better. Patient positive. Rheumatoid arthritis. Nonweightbearing. Recent foot surgery Objective Exam Vital Signs Date Time Temp Pulse Resp B/P (MAP) Pulse Ox O2 Delivery O2 Flow Rate FiO2 12/02/17 05:31 98.0 67 17 102/64 (77) 97 Room Air 12/01/17 20:50 Room Air 12/01/17 15:21 96.2 97 16 143/70 (94) 95 Room Air 12/01/17 09:22 Room Air I & O 12/02/17 07:00 Intake Total 1470 ml Balance 1470 ml Capillary Refill : General Appearance: No Apparent Distress, WD/WN HEENT: Normal ENT Inspection, Pharynx Normal Neck: Full Range of Motion, Normal Inspection Respiratory: No Accessory Muscle Use, No Respiratory Distress Cardiovascular: Regular Rate, Rhythm Assessment/Plan Assessment/Plan Assess & Plan/Chief Complaint Rheumatoid arthritis. Recent foot surgery. Nonweightbearing. Hypothyroid. Skipped heartbeats. Aortic aneurysm 4 cm 1 year ago. . 11/30/17. Rheumatoid arthritis. Recent foot surgery. 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 . 12/01/17. Rheumatoid arthritis.. Recent foot surgery. Patient learn to take care of herself. Hypothyroid. Nonweightbearing. 12/02/17. Rheumatoid arthritis. Recent foot surgery. Nonweightbearing. Hypothyroid. History of skipped heartbeats. Clinical Quality Measures DVT/VTE Risk/Contraindication: Risk Factor Score Per Nursin RFS Level Per Nursing on Admit: 4+=Very High LISA HARDING DO Dec 02, 2017 08:10
--- NOTE | 2017-12-02 08:53 | PM & R (SOAP) Progress Note ---
Subjective This was a face to face visit with the patient. Date Seen by Provider: Dec 02, 2017 Time Seen by Provider: 08:00 Subjective/Events-last exam Patient was seen in her room this AM Patient SBA for transfers.Progressing well with therapies Objective Physician Exam Last Set of Vital Signs Vital Signs Date Time Temp Pulse Resp B/P (MAP) Pulse Ox O2 Delivery O2 Flow Rate FiO2 12/02/17 05:31 98.0 67 17 102/64 (77) 97 Room Air Capillary Refill : I&O Intake and Output 12/02/17 00:00 Intake Total 1270 ml Balance 1270 ml Intake Oral 1270 ml # Voids 6 # Bowel Movements 1 General: Alert, Oriented X3, Cooperative, No Acute Distress HEENT: Atraumatic, PERRLA, EOMI, Mucous Memb Moist/[place] Neck: Supple, No JVD Lungs: Clear to Auscultation Heart: Regular Rate Abdomen: Normal Bowel Sounds, Soft, No Tenderness Extremities: Other (RT Foot in boot) Neuro: Other (Strength 4/5 BUES and LLE RT limited by boot Sensation grossly intact to touch) Results Lab Data Laboratory Tests 11/29/17 09:55: Urine Color YELLOW, Urine Clarity CLEAR, Urine pH 8, Urine Specific [place] 1.010L, Urine Protein NEGATIVE, Urine Glucose (UA) NEGATIVE, Urine Ketones NEGATIVE, Urine Nitrite NEGATIVE, Urine Bilirubin NEGATIVE, Urine Urobilinogen NORMAL, Urine Leukocyte Esterase NEGATIVE, Urine RBC (Auto) 1+H, Urine RBC 0-2, Urine WBC NONE, Urine Squamous Epithelial Cells RARE, Urine Crystals PRESENTH, Urine Amorphous Sediment RARE KATINA PHOSPHATEH, Urine Bacteria NEGATIVE, Urine Casts NONE, Urine Mucus NEGATIVE, Urine Culture Indicated NO Assessment/Plan Assessment and Plan RA of the spine knees and feet s/p Foot surgery DPM OSH Chronic back pain secondary to above with Chronic steroid usage UTI completing course of antibiotic Gerd with esophagitis on PPI Hypothyroidism on replacement Thoracic aorta aneurysm without rupture Plan Continue PT/OT Discharge set for next week to home with family and HHC Will f/u re deatils of discharge plans with SW Imaging studies noted (1) Rheumatoid arthritis Qualifiers: Status: Acute Co-Morbidities that are continuing to impact the rehab process: (include details ) TOM ORTIZ MD Dec 02, 2017 08:53
[2017-12-02] MEDS: CIPROFLOXACIN 500 MG (CIPRO) TABLET PO SCH ×2 (09:02→20:50)
[2017-12-02] MEDS: POLYETHYLENE GLYCOL 17 GM (MIRALAX) PACK PO SCH ×2 (09:02→20:25)
[2017-12-02] MEDS: VITAMIN D3 1,000 UNITS (CHOLECALCIFEROL) TABLET PO SCH (09:02)
[2017-12-02] MEDS: ASPIRIN E.C. 81 MG (ECOTRIN) TAB PO SCH (09:02)
[2017-12-02] MEDS: ISOSORBIDE MONONITRATE 30 MG (IMDUR) TAB PO SCH (09:02)
[2017-12-02] MEDS: FLUTICASONE NASAL SPRAY (FLONASE) 16 GM BTL NS SCH (09:06)
--- NOTE | 2017-12-02 10:14 | Physical Therapy Daily Note ---
PT Daily Note-Current Subjective Pt. explains further her home situation and that her home is very tight quarters but her daughters will be there neat FT. States she is planning on leaving Wed and cant wait to get in her own bed. Pain Numeric Pain Scale: 3 Location: Medial Location Body Site: Back Pain Description: Ache Mental Status Patient Orientation: Normal For Age Attachments: Other-See Comments (boot LLE) Transfers Functional [place] Measure 0=Not Assessed/NA 4=Minimal Assistance 1=Total Assistance 5=Supervision or Setup 2=Maximal Assistance 6=Modified [place] 3=Moderate Assistance 7=Complete IndependenceIRFPAI Quality Coding Scale 6 Independent with activity with or without an assistive device 5 Patient requires set up or clean up by helper. Patient completes activity by themselves 4 Supervision or touching assist (CGA). [place] provide cues , steadying assist 3 The helper provides less than half the effort to complete the activity 2 The helper provides more than half the effort to complete the activity 1 Dependent. The helper does all the effort to complete an activity 7 Patient refused to complete or attempt activity 9 The patient did not perform the activity before the current illness or injury 88 Not attempted due to Medical conditions or safety concerns Transfers (B, C, W/C) (FIM): 6 Scootin Rollin Supine to/from Sit: 6 Sit to/from Stand: 6 Bed to/from Chair: 6 Pt. does SPTs for all TRFs. much discussion this date about home situation, frig access, bthrm access, and w/c mobility in small spaces Weight Bearing Right Lower Extremity: Right Full Weight Bearing Left Lower Extremity: Left Non Weight Bearing Wheelchair Training Does the Pt Use a Wheelchair?: Yes Wheelchair (FIM): 4 Wheelchair Distance: 3=150 ft Wheelchair Level of Assist: 4 Type of Wheelchair: Manual skilled verbal instruction regarding safe alignment for TRF as well as braking and making sure the wheel of w/c is not in her way when she begins her TRF. fig 8s etc Exercises Supine Ex: Ankle pumps, Pelvic tilt, Quad Set, Rolling, Glut sets, Heel Slides , Short Arc Quads, Scooting, Straight leg raise (asist ), Hip abd/add (ssist) Treatments experimented with getting in out the frig while seated in w/c. moving warmed plate from micro to table safely while in w/c etc Assessment Current Status: Good Progress well motivated and knows herself and her history with RA, has a good balance of joint protection while maintaining strength and ROM. PT Short Term Goals Short Term Goals Time Frame: Dec 06, 2017 Transfers (B,C,W/C) (FIM): 5 Gait (FIM): 1 Gait Distance Comment: 20' Gait Level of Assist: 4 Gait Assistive Device: FWW Wheelchair Distance: 30' PT Skilled Nursing Goals Environmental Science Program Director Goals PT Skilled Nursing Goals Time Frame: Dec 20, 2017 Transfers (B,C,W/C) (FIM): 6 Sit to Lying (QC): 6 Lying-Sitting on Side/Bed(QC): 6 Sit to Stand (QC): 6 Rollin Roll Left to Right (QC): 6 Chair/Nfo-qu-Ytiia Xfer(QC): 6 Car Transfer (QC): 6 Gait (FIM): 2 Distance: 50' Walk 10 feet (QC): 4 Walk 10ft-Uneven Surface(QC): 4 Walk 50ft with 2 Turns (QC): 4 Walk 150 ft (QC): 4 Gait Level of Assist: 5 Gait Assistive Device: FWW Wheelchair (FIM): 6 Distance: 150' Wheelchair Level of Assist: 6 Wheel 50 feet with 2 turns (QC: 6 PT Plan Treatment/Plan Treatment Plan: Continue Plan of Care Treatment Plan: Bed Mobility, Education, Functional Activity Kang, Functional Strength, Group Therapy, Gait, Safety, Therapeutic Exercise, Transfers Treatment Duration: Dec 20, 2017 Frequency: At least 5 of 7 days/Wk (IRF) Estimated Hrs Per Day: 1.5 hours per day Patient and/or Family Agrees t: Yes Safety Risks/Education Patient Education: Transfer Techniques, Correct Positioning, W/C Management, Disease Process, Safety Issues Teaching Recipient: Patient Teaching Methods: Demonstration, Discussion Response to Teaching: Verbalize Understanding, Return Demonstration, Reinforcement Needed Time/GCodes Time In: 900 Time Out: 1000 Total Billed Treatment Time: 60 Total Billed Treatment 1,WC25m,FA20m,EX15m G Codes Necessary: TIERNEY May JUNIOR PROJECT COORDINATOR Dec 02, 2017 10:14
[2017-12-02] MEDS: ACETAMINOPHEN 325 MG TABLET PO PRN (11:35)
--- NOTE | 2017-12-02 14:54 | Therapy Group Daily Note ---
Therapy Daily Group Note Patient Education Topic Home Safety, Fall Prevention Exercises LE Seated Exercise, UE Exercise Other/Notes Pt maneuvered w/c to OT/PT group in therapy gym. Group consisted of introductions (name, place living, story about your father), socialization, UE/ LE seated exercises, home safety, fall prevention and dehydration. Pt introduced themselves appropriately and actively listened to peers. Verbalized understanding of each educational topic and gave personal stories pertaining to topics. Pt was able to answer questions about educational topics via Jeopardy activity. Completed exercises appropriately. After therapy, sitting in w/c with call light/phone in reach. All needs met in room. Start Time: 13:00 Stop Time: 14:15 Total Billed Treatment Time: 75 Total Billed Treatment 1-GRP ABEBA YEE Dec 02, 2017 14:54
--- NOTE | 2017-12-02 15:18 | Occupational Ther Daily Note ---
OT Current Status-Daily Note Subjective Pt seen in room, up in recliner, agreeable to OT. No pain mentioned. Appearance Alert, cooperative Mental Status/Objective Functional [place] Measure 0=Not Assessed/NA 4=Minimal Assistance 1=Total Assistance 5=Supervision or Setup 2=Maximal Assistance 6=Modified [place] 3=Moderate Assistance 7=Complete [place] ADL-Treatment Pt agreeable to ADLs. She was able to transfer from recliner to w/c, propel herself to the bathroom, transfer on/off toilet, transfer in/out of shower, bathe, return to room and transfer into bed to dress. Transfers were all SBA, stand pivot. She reported that her daughter had talked with her physician and said that she could have her cast boot off for short periods while she was in bed but not while sleeping. She was able to long sit and take cast boot off. Leg elevated on pillow to float L heel. Functional [place] Measure 0=Not Assessed/NA 4=Minimal Assistance 1=Total Assistance 5=Supervision or Setup 2=Maximal Assistance 6=Modified [place] 3=Moderate Assistance 7=Complete IndependenceIRFPAI Quality Coding Scale 6 Independent with activity with or without an assistive device 5 Patient requires set up or clean up by helper. Patient completes activity by themselves 4 Supervision or touching assist (CGA). [place] provide cues , steadying assist 3 The helper provides less than half the effort to complete the activity 2 The helper provides more than half the effort to complete the activity 1 Dependent. The helper does all the effort to complete an activity 7 Patient refused to complete or attempt activity 9 The patient did not perform the activity before the current illness or injury 88 Not attempted due to Medical conditions or safety concerns Bathing (FIM): 6 (Turned water on and off, retrieved towels. Washed and dried all parts except back. SHower bench, grab bars, hand held shower) Upper Body (FIM): 5 (Doffed and donned clothing with setup, including bra) Lower Body Dressing (FIM): 5 (Setup. Able to get pants on over cast boot. Pt practiced rolling side to side in bed to pull pants up and said that she felt very safe ) Toileting (FIM): 5 (SBA standing to manage clothing. Able to complete hygiene without help. BSC over toilet) Toilet/Commode Transfer (FIM): 5 (SBA, w/c to BSC over toilet, using grab bars) Shower Transfer(FIM): 5 (SBA, transferring from w/c to shower bench and back. Grab bars) Other Treatment P education on different bilat UE exercise with red theraband (medium resistance ). She did 10-12 reps, with occasional cues for technique. To strengthen arms to help with transfers and standing for ADLs. Pt left up in bed, all needs met. Education OT Patient Education: Exercise program, Modified ADL techniques, Purpose of tx/ functional activities, Safety issues Teaching Recipient: Patient Teaching Methods: Demonstration, Discussion Response to Teaching: Verbalize Understanding, Return Demonstration, Reinforcement Needed OT Short Term Goals Short Term Goals Time Frame: Dec 06, 2017 Eating(FIM): 6 Grooming(FIM): 6 Bathing(FIM): 5 Upper Body Dressing(FIM): 5 Lower Body Dressing(FIM): 5 Toileting(FIM): 6 Transfers (B,C,W/C) (FIM): 5 Toilet/Commode Transfer(FIM): 5 Shower Transfer(FIM): 5 Additional Short Term Goals: 1-Demonstrate ADL Tasks, 2-Verbalize Understanding , 3-ImproveStrength/Kang 1=Demonstrate adherence to instructed precautions during ADL tasks. 2=Patient will verbalize/demonstrate understanding of assistive devices/ modifications for ADL. 3=Patient will improve strength/tolerance for activity to enable patient to perform ADL's. OT Mcc Goals Mcc Goals Time Frame: Dec 13, 2017 Eating (FIM): 6 Eating (QC): 6 Groomin Oral Hygiene (QC): 6 Bathing(FIM): 5 Shower/Bathe Self (QC): 5 Upper Body Dressing(FIM): 6 Upper Body Dressing (QC): 6 Lower Body Dressing(FIM): 6 Lower Body Dressing (QC): 6 On/Off Footwear (QC): 6 Toileting(FIM): 6 Toileting Hygiene (QC): 6 Transfers (B,C,W/C) (FIM): 6 Toilet/Commode Transfer(FIM): 6 Toilet/Commode Transfer (QC): 6 Shower Transfer(FIM): 5 Additional Goals: 1-Demonstrate ADL Tasks, 2-Verbalize Understanding, 3- ImproveStrength/Kang 1=Demonstrate adherence to instructed precautions during ADL tasks. 2=Patient will verbalize/demonstrate understanding of assistive devices/ modifications for ADL. 3=Patient will improve strength/tolerance for activity to enable patient to perform ADL's. OT Education/Plan Discharge Recommendations Plan/Recommendations: Continue POC Treatment Plan/Plan of Care Patient would benefit from OT for education, treatment and training to promote independence in ADL's, mobility, safety and/or upper extremity function for ADL' s. Plan of Care: ADL Retraining, Functional Mobility, UE Funct Exercise/Act Treatment Duration: Dec 13, 2017 Frequency: At least 5 of 7 days/Wk (IRF) Estimated Hrs Per Day: 1.5 hours per day Agreement: Yes Rehab Potential: Good Time/GCodes Start Time: 10:30 Stop Time: 11:30 Total Time Billed (hr/min): 60 Billed Treatment Time visit, 45 minutes ADL, 15 minutes exercise JESUSITA MOISE OT Dec 02, 2017 15:18
[2017-12-02 17:49] VITALS: BP 120/59
[2017-12-02] MEDS: ESTRADIOL VAGINAL CREAM 42.5 GM (ESTRACE) VG SCH (20:50)
[2017-12-02] MEDS: ALPRAZolam 0.5 MG (XANAX) TAB PO SCH (20:50)
[2017-12-03 05:02] VITALS: BP 128/60
[2017-12-03] MEDS: MULTIVIT W/MINERALS TAB (THERAGRAN M) PO SCH (06:17)
[2017-12-03] MEDS: LACTOBACILLUS Acidoph/Bulgar (LACTINEX/FLORANEX) TAB PO SCH ×3 (06:17→16:01)
[2017-12-03] MEDS: PANTOPRAZOLE 40 MG (PROTONIX) TAB PO SCH (06:17)
[2017-12-03] MEDS: LEVOTHYROXINE 75 MCG (LEVOTHROID) TABLET PO SCH (06:17)
[2017-12-03] MEDS: predniSONE 1 MG TAB PO SCH (06:18)
[2017-12-03] MEDS: predniSONE 5 MG TAB PO SCH (06:18)
[2017-12-03] MEDS ORDERED: CIPROFLOXACIN 500 MG (CIPRO) TABLET PO SCH (09:00)
[2017-12-03] MEDS: VITAMIN D3 1,000 UNITS (CHOLECALCIFEROL) TABLET PO SCH (09:03)
[2017-12-03] MEDS: ASPIRIN E.C. 81 MG (ECOTRIN) TAB PO SCH (09:03)
[2017-12-03] MEDS: ISOSORBIDE MONONITRATE 30 MG (IMDUR) TAB PO SCH (09:03)
[2017-12-03] MEDS: CIPROFLOXACIN 500 MG (CIPRO) TABLET PO SCH (09:03)
[2017-12-03] MEDS: POLYETHYLENE GLYCOL 17 GM (MIRALAX) PACK PO SCH ×2 (09:04→19:15)
[2017-12-03] MEDS: FLUTICASONE NASAL SPRAY (FLONASE) 16 GM BTL NS SCH (09:07)
--- NOTE | 2017-12-03 12:04 | Physical Therapy Daily Note ---
PT Daily Note-Current Subjective Pt is sitting in [facility] in Therapy Gym after just finishing with OT upon arrival. Pt agrees to PT. Pain Numeric Pain Scale: 5-Moderate Pain Location: Left Location Body Site: Hip Pain Description: Ache Mental Status Patient Orientation: Person, Place, Time, Situation Attachments: Other-See Comments (L boot) Transfers Functional [place] Measure 0=Not Assessed/NA 4=Minimal Assistance 1=Total Assistance 5=Supervision or Setup 2=Maximal Assistance 6=Modified [place] 3=Moderate Assistance 7=Complete IndependenceIRFPAI Quality Coding Scale 6 Independent with activity with or without an assistive device 5 Patient requires set up or clean up by helper. Patient completes activity by themselves 4 Supervision or touching assist (CGA). [place] provide cues , steadying assist 3 The helper provides less than half the effort to complete the activity 2 The helper provides more than half the effort to complete the activity 1 Dependent. The helper does all the effort to complete an activity 7 Patient refused to complete or attempt activity 9 The patient did not perform the activity before the current illness or injury 88 Not attempted due to Medical conditions or safety concerns Scootin Supine to/from Sit: 5 Sit to/from Stand: 6 Sit to Lying (QC): 5 Sit to Stand (QC): 6 Chair/Lwc-az-Xtlfx Xfer(QC): 6 Bed to/from Chair: 6 Car Transfer (QC): 5 Weight Bearing Right Lower Extremity: Right Full Weight Bearing Left Lower Extremity: Left Non Weight Bearing Wheelchair Training Does the Pt Use a Wheelchair?: Yes Wheelchair Distance: 3=150 ft Distance: 300' Wheelchair Level of Assist: 5 Wheel 50 ft with 2 turns (QC): 6 Wheel 150 ft (QC): 5 Type of Wheelchair: Manual Exercises Supine Ex: Quad Set, Glut sets, Heel Slides, Scooting, Hip abd/add Supine Reps: 15 Seated Therapy Exercises: Ankle pumps, Long arc quads, Hip flexion, Kicking activity Seated Reps: 15 Treatments Pt needs to use restroom so propels [facility] back to room. After finishing, pt propels [facility] back to Therapy Gym. Pt completes Seated Ex in [facility] followed by transferring via SPT to EOB then Supine to complete Supine Ex on mat. Pt takes rest breaks as needed. Pt returns to [facility] at end of Ex to work on Car transfer. After car transfer, pt propels in [facility] before returning to room to rest. Pt uses restroom again before returning to bed. Pt asks IT SERVICE DELIVERY MANAGER to instruct on bed positioning for comfort (slanting the bed with HOB raised). Pt transfers back to Supine in bed with all needs met, including call light in hand. Assessment Current Status: Good Progress Pt has improved with independence and safety of transfers and WCH mobility as well as strengthening. PT Short Term Goals Short Term Goals Time Frame: Dec 06, 2017 Transfers (B,C,W/C) (FIM): 5 Gait (FIM): 1 Gait Distance Comment: 20' Gait Level of Assist: 4 Gait Assistive Device: FWW Wheelchair Distance: 30' PT Research Worker Encyclopedia Goals Intermediate Goals PT Intermediate Goals Time Frame: Dec 20, 2017 Transfers (B,C,W/C) (FIM): 6 Sit to Lying (QC): 6 Lying-Sitting on Side/Bed(QC): 6 Sit to Stand (QC): 6 Rollin Roll Left to Right (QC): 6 Chair/Gxm-is-Jpwss Xfer(QC): 6 Car Transfer (QC): 6 Gait (FIM): 2 Distance: 50' Walk 10 feet (QC): 4 Walk 10ft-Uneven Surface(QC): 4 Walk 50ft with 2 Turns (QC): 4 Walk 150 ft (QC): 4 Gait Level of Assist: 5 Gait Assistive Device: FWW Wheelchair (FIM): 6 Distance: 150' Wheelchair Level of Assist: 6 Wheel 50 feet with 2 turns (QC: 6 PT Plan Problem List Problem List: Activity Tolerance, Functional Strength, Gait Treatment/Plan Treatment Plan: Continue Plan of Care Treatment Plan: Bed Mobility, Education, Functional Activity Kang, Functional Strength, Group Therapy, Gait, Safety, Therapeutic Exercise, Transfers Treatment Duration: Dec 20, 2017 Frequency: At least 5 of 7 days/Wk (IRF) Estimated Hrs Per Day: 1.5 hours per day Patient and/or Family Agrees t: Yes Safety Risks/Education Patient Education: Transfer Techniques, Correct Positioning, W/C Management, Safety Issues Teaching Recipient: Patient Teaching Methods: Discussion Response to Teaching: Verbalize Understanding Time/GCodes Time In: 1030 Time Out: 1200 Total Billed Treatment Time: 90 Total Billed Treatment 1, WCH x2 (30m), EX x2 (35m) & FA x2 (25m) G Codes Necessary: ANDREW Interiano IT SERVICE DELIVERY MANAGER Dec 03, 2017 12:04
--- NOTE | 2017-12-03 12:21 | Occupational Ther Daily Note ---
OT Current Status-Daily Note Subjective Pt seen in room, up in bed, agreeable to OT. No pain mentioned. Appearance Alert, cooperative Mental Status/Objective Functional [place] Measure 0=Not Assessed/NA 4=Minimal Assistance 1=Total Assistance 5=Supervision or Setup 2=Maximal Assistance 6=Modified [place] 3=Moderate Assistance 7=Complete [place] ADL-Treatment Pt wanted to bathe today. She sat up to EOB without help, then transferred to w/ c and propelled herself to the bathroom. She toileted, then transferred back to w/c and moved to shower. She got in/out of shower with SBA and propelled w/c back to room to dress. She completed dressing in w/c and stood with close SBA to pull pants up, finding the most secure places to place her hands on FWW. She managed brakes consistently and safely but is not able to put legrest on w/c. She propelled w/c to shower room to look at transfer tub bench. OT demonstrated transfer process. She is considering this for home because she cannot bear weight on leg to step into tub or shower. . Functional [place] Measure 0=Not Assessed/NA 4=Minimal Assistance 1=Total Assistance 5=Supervision or Setup 2=Maximal Assistance 6=Modified [place] 3=Moderate Assistance 7=Complete IndependenceIRFPAI Quality Coding Scale 6 Independent with activity with or without an assistive device 5 Patient requires set up or clean up by helper. Patient completes activity by themselves 4 Supervision or touching assist (CGA). [place] provide cues , steadying assist 3 The helper provides less than half the effort to complete the activity 2 The helper provides more than half the effort to complete the activity 1 Dependent. The helper does all the effort to complete an activity 7 Patient refused to complete or attempt activity 9 The patient did not perform the activity before the current illness or injury 88 Not attempted due to Medical conditions or safety concerns Bathing (FIM): 6 (Washed and dried all parts, using shower bench, grab bars, hand held shower. Retrieved towels and turned water on/off. ) Upper Body (FIM): 5 (Setup to don t-shirt and jacket) Lower Body Dressing (FIM): 5 (SBA when standing to pull pants up. Able to get pants over cam boot. Used dressing stick. FWW) Toileting (FIM): 5 (SBA when standing to manage clothing. BSC over toilet, grab bars) Toilet/Commode Transfer (FIM): 5 (SBA w/c to BSC over toilet and back. Grab bar ) Other Treatment She propelled w/c to gym and positioned chair at work table. She did 14 minutes bilat UE exercise with arm bike set at 25W (increased 2 minutes) with one brief recovery break. She also did graded clothespins, arc activity and pegs, all with 1# weight on each arm. She completed 10 reps several different bilat UE exercises using exercise bar weighing about 1#. All exercises and activities to strengthen arms to help with safe standing during ADLs. Pt care transferred to PT. Education OT Patient Education: Exercise program, Progress toward Goal/Update tx plan, Purpose of tx/functional activities Teaching Recipient: Patient Teaching Methods: Discussion Response to Teaching: Verbalize Understanding, Return Demonstration OT Short Term Goals Short Term Goals Time Frame: Dec 06, 2017 Eating(FIM): 6 Grooming(FIM): 6 Bathing(FIM): 5 Upper Body Dressing(FIM): 5 Lower Body Dressing(FIM): 5 Toileting(FIM): 6 Transfers (B,C,W/C) (FIM): 5 Toilet/Commode Transfer(FIM): 5 Shower Transfer(FIM): 5 Additional Short Term Goals: 1-Demonstrate ADL Tasks, 2-Verbalize Understanding , 3-ImproveStrength/Kang 1=Demonstrate adherence to instructed precautions during ADL tasks. 2=Patient will verbalize/demonstrate understanding of assistive devices/ modifications for ADL. 3=Patient will improve strength/tolerance for activity to enable patient to perform ADL's. OT Friction Paint Machine Tender Goals Skilled Nursing Goals Time Frame: Dec 13, 2017 Eating (FIM): 6 Eating (QC): 6 Groomin Oral Hygiene (QC): 6 Bathing(FIM): 5 Shower/Bathe Self (QC): 5 Upper Body Dressing(FIM): 6 Upper Body Dressing (QC): 6 Lower Body Dressing(FIM): 6 Lower Body Dressing (QC): 6 On/Off Footwear (QC): 6 Toileting(FIM): 6 Toileting Hygiene (QC): 6 Transfers (B,C,W/C) (FIM): 6 Toilet/Commode Transfer(FIM): 6 Toilet/Commode Transfer (QC): 6 Shower Transfer(FIM): 5 Additional Goals: 1-Demonstrate ADL Tasks, 2-Verbalize Understanding, 3- ImproveStrength/Kang 1=Demonstrate adherence to instructed precautions during ADL tasks. 2=Patient will verbalize/demonstrate understanding of assistive devices/ modifications for ADL. 3=Patient will improve strength/tolerance for activity to enable patient to perform ADL's. OT Education/Plan Discharge Recommendations Plan/Recommendations: Continue POC Treatment Plan/Plan of Care Patient would benefit from OT for education, treatment and training to promote independence in ADL's, mobility, safety and/or upper extremity function for ADL' s. Plan of Care: ADL Retraining, Functional Mobility, UE Funct Exercise/Act Treatment Duration: Dec 13, 2017 Frequency: At least 5 of 7 days/Wk (IRF) Estimated Hrs Per Day: 1.5 hours per day Agreement: Yes Rehab Potential: Good Time/GCodes Start Time: 09:00 Stop Time: 10:30 Total Time Billed (hr/min): 90 Billed Treatment Time visit, 50 minutes ADL, 40 minutes exercise JESUSITA MOISE OT Dec 03, 2017 12:21
[2017-12-03 18:04] VITALS: BP 116/69
[2017-12-03] MEDS: ALPRAZolam 0.5 MG (XANAX) TAB PO SCH (21:47)
[2017-12-04 05:03] VITALS: BP 109/59
[2017-12-04] MEDS: LACTOBACILLUS Acidoph/Bulgar (LACTINEX/FLORANEX) TAB PO SCH ×3 (06:25→15:45)
[2017-12-04] MEDS: predniSONE 1 MG TAB PO SCH (06:25)
[2017-12-04] MEDS: LEVOTHYROXINE 75 MCG (LEVOTHROID) TABLET PO SCH (06:25)
[2017-12-04] MEDS: PANTOPRAZOLE 40 MG (PROTONIX) TAB PO SCH (06:25)
[2017-12-04] MEDS: MULTIVIT W/MINERALS TAB (THERAGRAN M) PO SCH (06:25)
[2017-12-04] MEDS: predniSONE 5 MG TAB PO SCH (06:25)
[2017-12-04] MEDS: ASPIRIN E.C. 81 MG (ECOTRIN) TAB PO SCH (09:55)
[2017-12-04] MEDS: FLUTICASONE NASAL SPRAY (FLONASE) 16 GM BTL NS SCH (09:55)
[2017-12-04] MEDS: ISOSORBIDE MONONITRATE 30 MG (IMDUR) TAB PO SCH (09:55)
[2017-12-04] MEDS: VITAMIN D3 1,000 UNITS (CHOLECALCIFEROL) TABLET PO SCH (09:56)
[2017-12-04] MEDS: POLYETHYLENE GLYCOL 17 GM (MIRALAX) PACK PO SCH ×2 (10:13→19:18)
[2017-12-04] MEDS: ACETAMINOPHEN 325 MG TABLET PO PRN (15:46)
[2017-12-04 18:39] VITALS: BP 112/57
[2017-12-04] MEDS: ALPRAZolam 0.5 MG (XANAX) TAB PO SCH (21:23)
[2017-12-05 05:05] VITALS: BP 111/57
[2017-12-05] MEDS: PANTOPRAZOLE 40 MG (PROTONIX) TAB PO SCH (06:26)
[2017-12-05] MEDS: MULTIVIT W/MINERALS TAB (THERAGRAN M) PO SCH (06:26)
[2017-12-05] MEDS: LEVOTHYROXINE 75 MCG (LEVOTHROID) TABLET PO SCH (06:26)
[2017-12-05] MEDS: predniSONE 1 MG TAB PO SCH (06:26)
[2017-12-05] MEDS: predniSONE 5 MG TAB PO SCH (06:26)
[2017-12-05] MEDS: LACTOBACILLUS Acidoph/Bulgar (LACTINEX/FLORANEX) TAB PO SCH ×3 (06:26→15:48)
--- NOTE | 2017-12-05 08:13 | Progress Note (SOAP) ---
Subjective Time Seen by Provider: 08:10 Subjective/Events-last exam Patient feel she is improving. Patient worried about a UTI. To do UA tomorrow. Objective Exam Vital Signs Date Time Temp Pulse Resp B/P (MAP) Pulse Ox O2 Delivery O2 Flow Rate FiO2 12/05/17 05:05 97.1 65 18 111/57 (75) 96 Room Air 12/04/17 20:51 Room Air 12/04/17 18:39 97.5 71 20 112/57 (75) 96 Room Air 12/04/17 08:47 Room Air I & O 12/05/17 07:00 Intake Total 1375 ml Balance 1375 ml Capillary Refill : General Appearance: No Apparent Distress, WD/WN HEENT: Normal ENT Inspection Neck: Full Range of Motion, Normal Inspection Respiratory: Lungs Clear, No Accessory Muscle Use, No Respiratory Distress Cardiovascular: Regular Rate, Rhythm Assessment/Plan Assessment/Plan Assess & Plan/Chief Complaint Rheumatoid arthritis. Recent foot surgery. Nonweightbearing. Hypothyroid. Skipped heartbeats. Aortic aneurysm 4 cm 1 year ago. . 11/30/17. Rheumatoid arthritis. Recent foot surgery. 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 . 12/01/17. Rheumatoid arthritis.. Recent foot surgery. Patient learn to take care of herself. Hypothyroid. Nonweightbearing. 12/02/17. Rheumatoid arthritis. Recent foot surgery. Nonweightbearing. Hypothyroid. History of skipped heartbeats.. . 12/05/17. Rheumatoid arthritis. Recent foot surgery. Not weight hearing. UTI to be evaluated tomorrow Clinical Quality Measures DVT/VTE Risk/Contraindication: Risk Factor Score Per Nursin RFS Level Per Nursing on Admit: 4+=Very High LISA HARDING DO Dec 05, 2017 08:12
[2017-12-05] MEDS: FLUTICASONE NASAL SPRAY (FLONASE) 16 GM BTL NS SCH (08:28)
[2017-12-05] MEDS: POLYETHYLENE GLYCOL 17 GM (MIRALAX) PACK PO SCH ×2 (08:29→21:00)
[2017-12-05] MEDS: ASPIRIN E.C. 81 MG (ECOTRIN) TAB PO SCH (08:29)
[2017-12-05] MEDS: ISOSORBIDE MONONITRATE 30 MG (IMDUR) TAB PO SCH (08:29)
[2017-12-05] MEDS: VITAMIN D3 1,000 UNITS (CHOLECALCIFEROL) TABLET PO SCH (08:29)
--- NOTE | 2017-12-05 09:59 | Physical Therapy Daily Note ---
PT Daily Note-Current Subjective Patient in bed pre tx, agrees to PT, has pain of 2/10 in left foot. Appearance Patient in bathroom on commode post tx, instructed to use nurse call when done. Mental Status Patient Orientation: Normal For Age boot left foot Transfers Functional [place] Measure 0=Not Assessed/NA 4=Minimal Assistance 1=Total Assistance 5=Supervision or Setup 2=Maximal Assistance 6=Modified [place] 3=Moderate Assistance 7=Complete IndependenceIRFPAI Quality Coding Scale 6 Independent with activity with or without an assistive device 5 Patient requires set up or clean up by helper. Patient completes activity by themselves 4 Supervision or touching assist (CGA). [place] provide cues , steadying assist 3 The helper provides less than half the effort to complete the activity 2 The helper provides more than half the effort to complete the activity 1 Dependent. The helper does all the effort to complete an activity 7 Patient refused to complete or attempt activity 9 The patient did not perform the activity before the current illness or injury 88 Not attempted due to Medical conditions or safety concerns Transfers (B, C, W/C) (FIM): 5 Scootin Rollin Supine to/from Sit: 6 Sit to/from Stand: 5 Bed to/from Chair: 5 Patient performs bed mobility with mod I, transfers with SBA, appropriate hand placement. Weight Bearing Right Lower Extremity: Right Full Weight Bearing Left Lower Extremity: Left Non Weight Bearing Wheelchair Training Does the Pt Use a Wheelchair?: Yes Wheelchair (FIM): 6 Distance: 200'x2 Type of Wheelchair: Manual Exercises Supine Ex: Ankle pumps, Quad Set, Glut sets, Heel Slides, Short Arc Quads, Straight leg raise, Hip abd/add Supine Reps: 20 LAQ alternating for 5 min NuStep Minutes: 15 NuStep Workload: 4 (Left leg off of machine to comply with weight bearing status.) Treatments bed mobility and transfers, functional strengthening Assessment Current Status: Fair Progress improving transfers PT Short Term Goals Short Term Goals Time Frame: Dec 06, 2017 Transfers (B,C,W/C) (FIM): 5 Gait (FIM): 1 Gait Distance Comment: 20' Gait Level of Assist: 4 Gait Assistive Device: FWW Wheelchair Distance: 300' PT Group Director Experience Goals Group Director Experience Goals PT Halfway Goals Time Frame: Dec 20, 2017 Transfers (B,C,W/C) (FIM): 6 Sit to Lying (QC): 6 Lying-Sitting on Side/Bed(QC): 6 Sit to Stand (QC): 6 Rollin Roll Left to Right (QC): 6 Chair/Mjj-vm-Xmazd Xfer(QC): 6 Car Transfer (QC): 6 Gait (FIM): 2 Distance: 50' Walk 10 feet (QC): 4 Walk 10ft-Uneven Surface(QC): 4 Walk 50ft with 2 Turns (QC): 4 Walk 150 ft (QC): 4 Gait Level of Assist: 5 Gait Assistive Device: FWW Wheelchair (FIM): 6 Distance: 150' Wheelchair Level of Assist: 6 Wheel 50 feet with 2 turns (QC: 6 PT Plan Problem List Problem List: Activity Tolerance, Functional Strength, Safety, Balance, Gait, Transfer, Bed Mobility, ROM Treatment/Plan Treatment Plan: Continue Plan of Care Treatment Plan: Bed Mobility, Education, Functional Activity Kang, Functional Strength, Group Therapy, Gait, Safety, Therapeutic Exercise, Transfers Treatment Duration: Dec 20, 2017 Frequency: At least 5 of 7 days/Wk (IRF) Estimated Hrs Per Day: 1.5 hours per day Patient and/or Family Agrees t: Yes Safety Risks/Education Patient Education: Transfer Techniques, Reviewed Precautions, Correct Positioning, W/C Management, Safety Issues Teaching Recipient: Patient Teaching Methods: Demonstration, Discussion Response to Teaching: Reinforcement Needed Time/GCodes Time In: 0900 Time Out: 1000 Total Billed Treatment Time: 60 Total Billed Treatment 1 visit [facility] 15' FA 15' EX 30' TABITHA FERGUSON PT Dec 05, 2017 09:59
[2017-12-05] MEDS: ACETAMINOPHEN 325 MG TABLET PO PRN (11:33)
--- NOTE | 2017-12-05 11:48 | Occupational Ther Daily Note ---
OT Current Status-Daily Note Subjective Pt seen in room, up in bed, agreeable to OT. No pain mentioned. Appearance Alert, cooperative. Looking forward to DC on Tuesday Mental Status/Objective Functional [place] Measure 0=Not Assessed/NA 4=Minimal Assistance 1=Total Assistance 5=Supervision or Setup 2=Maximal Assistance 6=Modified [place] 3=Moderate Assistance 7=Complete [place] ADL-Treatment Pt transferred from bed to w/c with SBA. Propelled w/c into bathroom and positioned chair for transfer into shower. Transferred w/c to shower bench with mod I, using grab bar. Pt completed shower mod I and transferred back into w/c to dress. She retrieved clean clothes and dressed upper body mod I. She was able to get pants on over cam boot and stood SBA, FWW to pull pants up. Pt educ/ discussion on other ways to stand to dress and she practiced getting up/down, holding on to countertop and/or sink. She was steadier with stable surface than with FWW and is more comfortable holding on to front of walker than on sides. She also stood safely at sink to brush her teeth. She propelled w/c to kitchen area and problem solved getting food items out of the refrigerator, the microwave, transporting them in her w/c, getting items out of cabinets, etc. She has a bone density technician at home and also discussed considering one with suction cups for tips. She got back into bed (pt educ on benefits/limitations with different angles between w/c and other surfaces). She was able to get cam boot off but struggles a little at times with the amount of velcro. Modified a couple of straps with pile velcro and tape to make them easier for her to manage due to arthritis in hands. Pt left up in bed, 4 rails up, L foot floating on pillow, all needs met. Functional [place] Measure 0=Not Assessed/NA 4=Minimal Assistance 1=Total Assistance 5=Supervision or Setup 2=Maximal Assistance 6=Modified [place] 3=Moderate Assistance 7=Complete IndependenceIRFPAI Quality Coding Scale 6 Independent with activity with or without an assistive device 5 Patient requires set up or clean up by helper. Patient completes activity by themselves 4 Supervision or touching assist (CGA). [place] provide cues , steadying assist 3 The helper provides less than half the effort to complete the activity 2 The helper provides more than half the effort to complete the activity 1 Dependent. The helper does all the effort to complete an activity 7 Patient refused to complete or attempt activity 9 The patient did not perform the activity before the current illness or injury 88 Not attempted due to Medical conditions or safety concerns Grooming (FIM): 6 (Stood at sink to brush teeth. Very stable. w/c level) Bathing (FIM): 6 (Retrieved towel, turned water on and off. Washed and dried all parts, shower bench, grab bars, hand held shower.) Upper Body (FIM): 6 (Retrieved clean clothes, w/c level. Dressed upper body with no help) Lower Body Dressing (FIM): 5 (Retrieved clean clothes. Able to get Depends on over cam boot and tears them off. SBA standing at FWW to pull pants up. ) Shower Transfer(FIM): 5 (SBA getting on and out of shower, using shower bench, grab bar, FWW) Other Treatment Pt propelled w/c to gym. Did 15 minutes bilat UE exercise with arm bike set on 25W resistance (increased time). Also did 10-15 reps bilat UE exercise with red theraband, using information on handout provided today. Some of the exercises bothered her shoulders so she did fewer reps. Exercises to strengthen arms to help with transfers and standing during ADLs. Education OT Patient Education: Home exercise program, Modified ADL techniques, Progress toward Goal/Update tx plan, Purpose of tx/functional activities, Safety issues, Transfer techniques Teaching Recipient: Patient Teaching Methods: Demonstration, Discussion Response to Teaching: Verbalize Understanding, Return Demonstration OT Short Term Goals Short Term Goals Time Frame: Dec 06, 2017 Eating(FIM): 6 Grooming(FIM): 6 Bathing(FIM): 5 Upper Body Dressing(FIM): 5 Lower Body Dressing(FIM): 5 Toileting(FIM): 6 Transfers (B,C,W/C) (FIM): 5 Toilet/Commode Transfer(FIM): 5 Shower Transfer(FIM): 5 Additional Short Term Goals: 1-Demonstrate ADL Tasks, 2-Verbalize Understanding , 3-ImproveStrength/Kang 1=Demonstrate adherence to instructed precautions during ADL tasks. 2=Patient will verbalize/demonstrate understanding of assistive devices/ modifications for ADL. 3=Patient will improve strength/tolerance for activity to enable patient to perform ADL's. OT Land Classifier Goals Fpc Goals Time Frame: Dec 13, 2017 Eating (FIM): 6 Eating (QC): 6 Groomin Oral Hygiene (QC): 6 Bathing(FIM): 5 Shower/Bathe Self (QC): 5 Upper Body Dressing(FIM): 6 Upper Body Dressing (QC): 6 Lower Body Dressing(FIM): 6 Lower Body Dressing (QC): 6 On/Off Footwear (QC): 6 Toileting(FIM): 6 Toileting Hygiene (QC): 6 Transfers (B,C,W/C) (FIM): 6 Toilet/Commode Transfer(FIM): 6 Toilet/Commode Transfer (QC): 6 Shower Transfer(FIM): 5 Additional Goals: 1-Demonstrate ADL Tasks, 2-Verbalize Understanding, 3- ImproveStrength/Kang 1=Demonstrate adherence to instructed precautions during ADL tasks. 2=Patient will verbalize/demonstrate understanding of assistive devices/ modifications for ADL. 3=Patient will improve strength/tolerance for activity to enable patient to perform ADL's. OT Education/Plan Discharge Recommendations Plan/Recommendations: Continue POC Treatment Plan/Plan of Care Patient would benefit from OT for education, treatment and training to promote independence in ADL's, mobility, safety and/or upper extremity function for ADL' s. Plan of Care: ADL Retraining, Functional Mobility, UE Funct Exercise/Act Treatment Duration: Dec 13, 2017 Frequency: At least 5 of 7 days/Wk (IRF) Estimated Hrs Per Day: 1.5 hours per day Agreement: Yes Rehab Potential: Good Time/GCodes Start Time: 10:00 Stop Time: 11:30 Total Time Billed (hr/min): 90 Billed Treatment Time visit, 60 minutes ADL, 30 minutes exercise JESUSITA MOISE OT Dec 05, 2017 11:48
--- NOTE | 2017-12-05 13:32 | D/C HH Face to Face Order ---
D/C Face to Face Orders Instructions for Patient Patient Instructions/FollowUp: Dr. Medina on 12/12 Physician to follow Patient: Dr. Medina Discharge Diet for Home: Regular Diet Patient Data-Allergies,Ht & Wt Patient Allergies: Coded Allergies: morphine (Verified Allergy, Mild, 11/28/17) Severe itching adhesive (Verified Allergy, Unknown, RASH, 11/28/17) atorvastatin (Verified Allergy, Unknown, 11/28/17) Muscle pain sulfamethoxazole (Verified Allergy, Unknown, HIVES, 11/28/17) tramadol (Verified Allergy, Unknown, 11/28/17) Hallucinations trimethoprim (Verified Allergy, Unknown, HIVES, 11/28/17) Height (Feet): 5 Height (Inches): 1.00 Weight (Pounds): 155 Weight (Ounces): 0.0 Home Health Need/Face to Face Date of Face to Face: Dec 07, 2017 Clinical Findings: Generalized weakness and fatigue, Muscle weakness, Non or partial weight bearing, Unsteady gait I have seen Pt [id number]: Yes Discharged To: Home Diagnosis/Conditions: Debility post foot procedure Patient is Homebound due to: Bettie fall risk due to instabilty, Muscle weakness , Non-weight bearing Homebound Status Due to the above stated illness, injury or surgical procedure (medical condition or diagnosis) and associated clinical findings, the patient is homebound because of his/her inability to leave home except with aid of a supportive device and/or person AND leaving the home requires a considerable and taxing effort or is medically contraindicated. Pt req the following assistanc: Walker, Wheelchair Home Health Nursing Orders Home Health Services Order: Open Shank Coverer-Evaluate & Treat, Physical Therapy-Evaluate & Treat To admit for services on 12/08 Therapy Orders Therapy Orders: OT (must have SN or PT order), Physical Therapy Therapy Specific Orders: Eval assistive deivces, Teach enviro modifications/ safety, Gait training, Increase strength/endurance, Restore ROM Certify Stmt I certify that this patient is under my care and that I, a nurse practitioner or a physician; a education assistant working with me, had a face to face encounter that - meets the physician face to face encounter requirements with this patient as dated. I personally scribed for TOM ORTIZ MD ([facility]) on 12/05/17 at 13:32. Electronically submitted by Thu Childress ([id number]). TOM ORTIZ MD Dec 05, 2017 13:32
--- NOTE | 2017-12-05 13:57 | Physical Therapy Daily Note ---
PT Daily Note-Current Subjective Patient is in bed and agrees to PT. No c/o. Pain Numeric Pain Scale: 0-No Pain Location: No Pain Reported Mental Status Patient Orientation: Normal For Age Transfers Functional [place] Measure 0=Not Assessed/NA 4=Minimal Assistance 1=Total Assistance 5=Supervision or Setup 2=Maximal Assistance 6=Modified [place] 3=Moderate Assistance 7=Complete IndependenceIRFPAI Quality Coding Scale 6 Independent with activity with or without an assistive device 5 Patient requires set up or clean up by helper. Patient completes activity by themselves 4 Supervision or touching assist (CGA). [place] provide cues , steadying assist 3 The helper provides less than half the effort to complete the activity 2 The helper provides more than half the effort to complete the activity 1 Dependent. The helper does all the effort to complete an activity 7 Patient refused to complete or attempt activity 9 The patient did not perform the activity before the current illness or injury 88 Not attempted due to Medical conditions or safety concerns Transfers (B, C, W/C) (FIM): 6 Scootin Rollin Roll Left to Right (QC): 6 Supine to/from Sit: 6 Sit to/from Stand: 6 Sit to Lying (QC): 6 Sit to Stand (QC): 6 Chair/[id number] Xfer(QC): 6 Bed to/from Chair: 6 Car Transfer (QC): 6 Weight Bearing Right Lower Extremity: Right Full Weight Bearing Left Lower Extremity: Left Non Weight Bearing Wheelchair Training Does the Pt Use a Wheelchair?: Yes Wheelchair (FIM): 5 Wheelchair Distance: 3=150 ft Distance: 200' x 2 Wheelchair Level of Assist: 5 Wheel 50 ft with 2 turns (QC): 5 Wheel 150 ft (QC): 5 Type of Wheelchair: Manual Exercises NuStep Minutes: 15 NuStep Workload: 3 (to increase strength and mobility (NWB left LE)) Assessment Patient very motivated to return to home this week. Progressing with treatment plan. PT Short Term Goals Short Term Goals Time Frame: Dec 06, 2017 Transfers (B,C,W/C) (FIM): 5 Gait (FIM): 1 Gait Distance Comment: 20' Gait Level of Assist: 4 Gait Assistive Device: FWW Wheelchair Distance: 200'x2 PT Intermediate Goals Capability Lead Goals PT Capability Lead Goals Time Frame: Dec 20, 2017 Transfers (B,C,W/C) (FIM): 6 Sit to Lying (QC): 6 Lying-Sitting on Side/Bed(QC): 6 Sit to Stand (QC): 6 Rollin Roll Left to Right (QC): 6 Chair/Lkc-be-Ckeui Xfer(QC): 6 Car Transfer (QC): 6 Gait (FIM): 2 Distance: 50' Walk 10 feet (QC): 4 Walk 10ft-Uneven Surface(QC): 4 Walk 50ft with 2 Turns (QC): 4 Walk 150 ft (QC): 4 Gait Level of Assist: 5 Gait Assistive Device: FWW Wheelchair (FIM): 6 Distance: 150' Wheelchair Level of Assist: 6 Wheel 50 feet with 2 turns (QC: 6 PT Plan Treatment/Plan Treatment Plan: Continue Plan of Care Treatment Plan: Bed Mobility, Education, Functional Activity Kang, Functional Strength, Group Therapy, Gait, Safety, Therapeutic Exercise, Transfers Treatment Duration: Dec 20, 2017 Frequency: At least 5 of 7 days/Wk (IRF) Estimated Hrs Per Day: 1.5 hours per day Patient and/or Family Agrees t: Yes Time/GCodes Time In: 1321 Time Out: 1351 Total Billed Treatment Time: 30 Total Billed Treatment 1 visit EX 15 min WC 15 min DEBBIE WALKER PT Dec 05, 2017 13:56
--- NOTE | 2017-12-05 14:21 | PM & R (SOAP) Progress Note ---
Subjective This was a face to face visit with the patient. Date Seen by Provider: Dec 05, 2017 Time Seen by Provider: 14:20 Subjective/Events-last exam Patient was seen in her room this Afternoon .Patient Modified Independent for transfers Objective Physician Exam Last Set of Vital Signs Vital Signs Date Time Temp Pulse Resp B/P (MAP) Pulse Ox O2 Delivery O2 Flow Rate FiO2 12/05/17 08:37 Room Air 12/05/17 05:05 97.1 65 18 111/57 (75) 96 Capillary Refill : I&O Intake and Output 12/05/17 00:00 Intake Total 1375 ml Balance 1375 ml Intake Oral 1375 ml # Voids 6 # Bowel Movements 1 General: Alert, Oriented X3, Cooperative, No Acute Distress HEENT: Atraumatic, PERRLA, EOMI, Mucous Memb Moist/[place] Neck: Supple, No JVD Lungs: Clear to Auscultation Heart: Regular Rate Abdomen: Normal Bowel Sounds, Soft, No Tenderness Extremities: Other (RT Foot in boot) Neuro: Other (Strength 4/5 BUES and LLE RT limited by boot Sensation grossly intact to touch) Assessment/Plan Assessment and Plan RA of the spine knees and feet s/p Foot surgery DPM OSH Chronic back pain secondary to above Chronic steroid usage UTI compled course of antibiotic GERD with esophagitis on PPI Hypothyroidism on replacement Thoracic aortic aneurysm without rupture Plan Continue PT/OT Discharge set for later this week to home Will f/u with SW / Team re details (1) Rheumatoid arthritis Qualifiers: Status: Acute Co-Morbidities that are continuing to impact the rehab process: (include details ) TOM ORTIZ MD Dec 05, 2017 14:21
[2017-12-05 17:23] VITALS: BP 122/66
[2017-12-05] MEDS: ALPRAZolam 0.5 MG (XANAX) TAB PO SCH (21:35)
[2017-12-05] MEDS: ESTRADIOL VAGINAL CREAM 42.5 GM (ESTRACE) VG SCH (21:37)
[2017-12-06 05:03] VITALS: BP 123/67
[2017-12-06] MEDS: LEVOTHYROXINE 75 MCG (LEVOTHROID) TABLET PO SCH (06:35)
[2017-12-06] MEDS: predniSONE 5 MG TAB PO SCH (06:35)
[2017-12-06] MEDS: LACTOBACILLUS Acidoph/Bulgar (LACTINEX/FLORANEX) TAB PO SCH ×3 (06:35→16:32)
[2017-12-06] MEDS: MULTIVIT W/MINERALS TAB (THERAGRAN M) PO SCH (06:35)
[2017-12-06] MEDS: PANTOPRAZOLE 40 MG (PROTONIX) TAB PO SCH (06:36)
[2017-12-06 06:37] LABS: BILIRUBIN,URINE NEGATIVE (NEGATIVE); CLARITY,URINE CLEAR; COLOR,URINE YELLOW; GLUCOSE, URINE (UA) NEGATIVE (NEGATIVE); KETONES,URINE NEGATIVE (NEGATIVE); LEUKOCYTE ESTERASE ,URINE NEGATIVE (NEGATIVE); NITRITE,URINE NEGATIVE (NEGATIVE); PH,URINE 6 (5-9); PROTEIN,URINE NEGATIVE (NEGATIVE); UROBILINOGEN,URINE NORMAL (NORMAL)
[2017-12-06] MEDS: predniSONE 1 MG TAB PO SCH (06:39)
[2017-12-06 06:42] LABS: BACTERIA,URINE NEGATIVE /HPF; SQUAMOUS EPITHELIAL CELL,UR 0-2 /HPF
--- NOTE | 2017-12-06 08:20 | Progress Note (SOAP) ---
Subjective Time Seen by Provider: 08:15 Subjective/Events-last exam Patient feels she has UTI. UA today is negative. Patient wants results sent to her physician. Patient states she's transferring better. Rheumatoid arthritis Objective Exam Vital Signs Date Time Temp Pulse Resp B/P (MAP) Pulse Ox O2 Delivery O2 Flow Rate FiO2 12/06/17 05:03 98.0 68 17 123/67 (85) 96 Room Air 12/05/17 21:00 Room Air 12/05/17 17:23 97.9 82 18 122/66 (84) 98 Room Air 12/05/17 08:37 Room Air I & O 12/06/17 07:00 Intake Total 1450 ml Balance 1450 ml Capillary Refill : General Appearance: No Apparent Distress, WD/WN HEENT: Normal ENT Inspection Neck: Full Range of Motion Respiratory: Chest Non Tender, Lungs Clear, No Accessory Muscle Use Cardiovascular: Regular Rate, Rhythm, No Murmur Results Lab Laboratory Tests 12/06/17 06:26: Urine Color YELLOW, Urine Clarity CLEAR, Urine pH 6, Urine Specific [place] 1.015L, Urine Protein NEGATIVE, Urine Glucose (UA) NEGATIVE, Urine Ketones NEGATIVE, Urine Nitrite NEGATIVE, Urine Bilirubin NEGATIVE, Urine Urobilinogen NORMAL, Urine Leukocyte Esterase NEGATIVE, Urine RBC (Auto) NEGATIVE, Urine RBC NONE, Urine WBC NONE, Urine Squamous Epithelial Cells 0-2, Urine Crystals NONE, Urine Bacteria NEGATIVE, Urine Casts NONE, Urine Mucus NEGATIVE, Urine Culture Indicated NO Assessment/Plan Assessment/Plan Assess & Plan/Chief Complaint Rheumatoid arthritis. Recent foot surgery. Nonweightbearing. Hypothyroid. Skipped heartbeats. Aortic aneurysm 4 cm 1 year ago. . 11/30/17. Rheumatoid arthritis. Recent foot surgery. 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 . 12/01/17. Rheumatoid arthritis.. Recent foot surgery. Patient learn to take care of herself. Hypothyroid. Nonweightbearing. 12/02/17. Rheumatoid arthritis. Recent foot surgery. Nonweightbearing. Hypothyroid. History of skipped heartbeats.. . 12/05/17. Rheumatoid arthritis. Recent foot surgery. Not weight hearing. UTI to be evaluated tomorrow . 12/06/17. Rheumatoid arthritis. Recent foot surgery. Not weightbearing. UA negative. Clinical Quality Measures DVT/VTE Risk/Contraindication: Risk Factor Score Per Nursin RFS Level Per Nursing on Admit: 4+=Very High LISA HARDING DO Dec 06, 2017 08:20
[2017-12-06] MEDS: VITAMIN D3 1,000 UNITS (CHOLECALCIFEROL) TABLET PO SCH (08:33)
[2017-12-06] MEDS: ISOSORBIDE MONONITRATE 30 MG (IMDUR) TAB PO SCH (08:33)
[2017-12-06] MEDS: POLYETHYLENE GLYCOL 17 GM (MIRALAX) PACK PO SCH ×2 (08:33→20:45)
[2017-12-06] MEDS: FLUTICASONE NASAL SPRAY (FLONASE) 16 GM BTL NS SCH (08:33)
[2017-12-06] MEDS: ASPIRIN E.C. 81 MG (ECOTRIN) TAB PO SCH (08:33)
--- NOTE | 2017-12-06 09:26 | Occupational Ther Daily Note ---
OT Current Status-Daily Note Subjective Pt seen in room, up in recliner, agreeable to OT. No pain mentioned. Appearance Alert, cooperative Mental Status/Objective Functional [place] Measure 0=Not Assessed/NA 4=Minimal Assistance 1=Total Assistance 5=Supervision or Setup 2=Maximal Assistance 6=Modified [place] 3=Moderate Assistance 7=Complete [place] Comprehension(FIM): 7 Expression(FIM): 7 Social Interaction(FIM): 6 Problem Solving(FIM): 7 Memory(FIM): 7 ADL-Treatment Pt transferred from recliner to wheelchair, to BSC over toilet, to shower bench and back to w/c with mod I. No LOB and maintained WBS throughout. Daughter present second half of tx. Discussed standing at home at countertop vs standing with FWW. Pt demonstrated very safe standing at sink but was a little less secure standing with FWW to shift arms to pull pants up/down for toileting or dressing. Discussed she may want to have her BSC in kitchen or by dresser at home so that she could more comfortably stand to manage pants. She also can dress her lower body in bed without help. Pt has no concerns about going home and her daughters have been very helpful in preparing her home. Home health OT is recommended to evaluation bathroom accessibility and safety at walker level. She has difficulty hopping any distance because ot limitations from her RA and back pain. Sometimes uses dressing stick or blow moulding machine operator, which he has at home. Pt left up in w/c, all needs met. Functional [place] Measure 0=Not Assessed/NA 4=Minimal Assistance 1=Total Assistance 5=Supervision or Setup 2=Maximal Assistance 6=Modified [place] 3=Moderate Assistance 7=Complete IndependenceIRFPAI Quality Coding Scale 6 Independent with activity with or without an assistive device 5 Patient requires set up or clean up by helper. Patient completes activity by themselves 4 Supervision or touching assist (CGA). [place] provide cues , steadying assist 3 The helper provides less than half the effort to complete the activity 2 The helper provides more than half the effort to complete the activity 1 Dependent. The helper does all the effort to complete an activity 7 Patient refused to complete or attempt activity 9 The patient did not perform the activity before the current illness or injury 88 Not attempted due to Medical conditions or safety concerns Eating (FIM): 6 (Able to open packages and cut up food. Can feed herself without help. Has dentures and does not eat without them. Orders own meals) Eating (QC): 6 Grooming (FIM): 6 (Stood at sink to brush teeth. Washed face and hands in shower.) Oral Hygiene (QC): 6 Bathing (FIM): 6 (Turned water on and off and retrieved towels from bar. Washed and dried all parts. Shower bench, grab bars, hand held shower. ) Shower/Bathe Self (QC): 6 Upper Body (FIM): 7 (Retrieved clean clothes at w/c level independently. Doffed and donned clothing including bra without help, seated) Upper Body Dressing (QC): 6 Lower Body Dressing (FIM): 6 (Retrieved clean clothes. Undressed and dressed modified techniques, at w/c level. Stood safely at sink to pull pants up. Also can dress lower body in bed without help. ) Lower Body Dressing (QC): 6 On/Off Footwear (QC): 6 (Able to take cast boot off and put it back on. Said that velcro and tape added to brace made it easier to put on. Doffed and donned shoe without help.) Toileting (FIM): 6 (BSC over toilet, grab bar. Managed clothing and hygien safely) Toileting Hygiene (QC): 6 Toilet/Commode Transfer (FIM): 6 (On/off BSC over toilet, grab bar, from w/c and back. SPT) Toilet Transfer (QC): 6 Shower Transfer(FIM): 6 (On/off shower bench, from w/c. Used grab bars.) Education OT Patient Education: Modified ADL techniques, Progress toward Goal/Update tx plan, Purpose of tx/functional activities, Safety issues, Transfer techniques, Use of adapted equipment Teaching Recipient: Patient, Family Teaching Methods: Discussion Response to Teaching: Verbalize Understanding, Return Demonstration OT Short Term Goals Short Term Goals Time Frame: Dec 06, 2017 Eating(FIM): 6 Grooming(FIM): 6 Bathing(FIM): 5 Upper Body Dressing(FIM): 5 Lower Body Dressing(FIM): 5 Toileting(FIM): 6 Transfers (B,C,W/C) (FIM): 5 Toilet/Commode Transfer(FIM): 5 Shower Transfer(FIM): 5 Additional Short Term Goals: 1-Demonstrate ADL Tasks, 2-Verbalize Understanding , 3-ImproveStrength/Kang 1=Demonstrate adherence to instructed precautions during ADL tasks. 2=Patient will verbalize/demonstrate understanding of assistive devices/ modifications for ADL. 3=Patient will improve strength/tolerance for activity to enable patient to perform ADL's. OT Yarn Spooler Goals Yarn Spooler Goals Time Frame: Dec 13, 2017 Eating (FIM): 6 Eating (QC): 6 Groomin Oral Hygiene (QC): 6 Bathing(FIM): 5 Shower/Bathe Self (QC): 5 Upper Body Dressing(FIM): 6 Upper Body Dressing (QC): 6 Lower Body Dressing(FIM): 6 Lower Body Dressing (QC): 6 On/Off Footwear (QC): 6 Toileting(FIM): 6 Toileting Hygiene (QC): 6 Transfers (B,C,W/C) (FIM): 6 Toilet/Commode Transfer(FIM): 6 Toilet/Commode Transfer (QC): 6 Shower Transfer(FIM): 5 Additional Goals: 1-Demonstrate ADL Tasks, 2-Verbalize Understanding, 3- ImproveStrength/Kang 1=Demonstrate adherence to instructed precautions during ADL tasks. 2=Patient will verbalize/demonstrate understanding of assistive devices/ modifications for ADL. 3=Patient will improve strength/tolerance for activity to enable patient to perform ADL's. OT Education/Plan Discharge Recommendations Plan/Recommendations: Continue POC Treatment Plan/Plan of Care Patient would benefit from OT for education, treatment and training to promote independence in ADL's, mobility, safety and/or upper extremity function for ADL' s. Plan of Care: ADL Retraining, Functional Mobility, UE Funct Exercise/Act Treatment Duration: Dec 13, 2017 Frequency: At least 5 of 7 days/Wk (IRF) Estimated Hrs Per Day: 1.5 hours per day Agreement: Yes Rehab Potential: Good Time/GCodes Start Time: 08:30 Stop Time: 09:25 Total Time Billed (hr/min): 55 Billed Treatment Time visit, 55 minutes ADL JESUSITA MOISE OT Dec 06, 2017 09:26
--- NOTE | 2017-12-06 09:31 | PM & R (SOAP) Progress Note ---
Subjective This was a face to face visit with the patient. Date Seen by Provider: Dec 06, 2017 Time Seen by Provider: 07:50 Subjective/Events-last exam Patient was seen in her room this AM Patient Modified Independent for transfers Objective Physician Exam Last Set of Vital Signs Vital Signs Date Time Temp Pulse Resp B/P (MAP) Pulse Ox O2 Delivery O2 Flow Rate FiO2 12/06/17 05:03 98.0 68 17 123/67 (85) 96 Room Air Capillary Refill : I&O Intake and Output 12/06/17 00:00 Intake Total 1600 ml Balance 1600 ml Intake Oral 1600 ml # Voids 7 General: Alert, Oriented X3, Cooperative, No Acute Distress HEENT: Atraumatic, PERRLA, EOMI, Mucous Memb Moist/[place] Neck: Supple, No JVD Lungs: Clear to Auscultation Heart: Regular Rate Abdomen: Normal Bowel Sounds, Soft, No Tenderness Extremities: Other (RT Foot in boot) Neuro: Other (Strength 4/5 BUES and LLE RT limited by boot Sensation grossly intact to touch) Results Lab Data Laboratory Tests 12/06/17 06:26: Urine Color YELLOW, Urine Clarity CLEAR, Urine pH 6, Urine Specific [place] 1.015L, Urine Protein NEGATIVE, Urine Glucose (UA) NEGATIVE, Urine Ketones NEGATIVE, Urine Nitrite NEGATIVE, Urine Bilirubin NEGATIVE, Urine Urobilinogen NORMAL, Urine Leukocyte Esterase NEGATIVE, Urine RBC (Auto) NEGATIVE, Urine RBC NONE, Urine WBC NONE, Urine Squamous Epithelial Cells 0-2, Urine Crystals NONE, Urine Bacteria NEGATIVE, Urine Casts NONE, Urine Mucus NEGATIVE, Urine Culture Indicated NO Assessment/Plan Assessment and Plan RA of the spine and knees and feet s/p foot surgery DPM OSH Chronic back pain secondary to above Chronic steroid usage UTI completed course of antibiotic GERD with esophagitis on PPI Hypothroidism on replacement Thoracic aorta aneurysm without rupture Plan Continue PT/OT Discharge remains set for tomorrow to home with family and HHC Current meds reviewed (1) Rheumatoid arthritis Qualifiers: Status: Acute Co-Morbidities that are continuing to impact the rehab process: (include details ) TOM ORTIZ MD Dec 06, 2017 09:31
--- NOTE | 2017-12-06 10:27 | Physical Therapy Daily Note ---
PT Daily Note-Current Subjective Patient in wheelchair pre tx, agrees to PT, states she has 3/10 pain in left hip , none in her left foot. Appearance Patient in wheelchair post tx in room with nurse call, phone, tray, family in the room. Mental Status Patient Orientation: Normal For Age boot left foot Transfers Functional [place] Measure 0=Not Assessed/NA 4=Minimal Assistance 1=Total Assistance 5=Supervision or Setup 2=Maximal Assistance 6=Modified [place] 3=Moderate Assistance 7=Complete IndependenceIRFPAI Quality Coding Scale 6 Independent with activity with or without an assistive device 5 Patient requires set up or clean up by helper. Patient completes activity by themselves 4 Supervision or touching assist (CGA). [place] provide cues , steadying assist 3 The helper provides less than half the effort to complete the activity 2 The helper provides more than half the effort to complete the activity 1 Dependent. The helper does all the effort to complete an activity 7 Patient refused to complete or attempt activity 9 The patient did not perform the activity before the current illness or injury 88 Not attempted due to Medical conditions or safety concerns Transfers (B, C, W/C) (FIM): 6 Scootin Rollin Roll Left to Right (QC): 6 Supine to/from Sit: 6 Sit to/from Stand: 6 Sit to Lying (QC): 6 Sit to Stand (QC): 6 Chair/Tek-ts-Jayga Xfer(QC): 6 Bed to/from Chair: 6 Car Transfer (QC): 6 Patient performs bed mobility and transfers with mod I, car transfer mod I. Weight Bearing Right Lower Extremity: Right Full Weight Bearing Left Lower Extremity: Left Non Weight Bearing Gait Training Gait (FIM): 0 Patient cannot ambulate. Because of her RA she cannot bear enough weigh through her arms to hop with her right foot and maintain her non-weight bearing status on the left leg. Wheelchair Training Does the Pt Use a Wheelchair?: Yes Wheelchair (FIM): 6 Distance: 800' Wheel 50 ft with 2 turns (QC): 6 Wheel 150 ft (QC): 6 Type of Wheelchair: Manual Patient can propel a manual wheelchair 800' with mod I, including ramps. Exercises Supine Ex: Ankle pumps (not on left side), Quad Set, Glut sets, Heel Slides, Short Arc Quads, Straight leg raise, Hip abd/add Supine Reps: 20 Standing: Hamstring curls, 3 way Ex=Flex, Abd, Ext (not extension), Marching standing exercises just on left side, LAQ alternating for 5 min Treatments bed mobility and transfers, wheelchair mobility, functional strengthening Assessment Current Status: Fair Progress Family training went well, patient does not needs any assist with transfers. PT Short Term Goals Short Term Goals Time Frame: Dec 06, 2017 Transfers (B,C,W/C) (FIM): 5 Gait (FIM): 1 Gait Distance Comment: 20' Gait Level of Assist: 4 Gait Assistive Device: FWW Wheelchair Distance: 200' x 2 PT Drum Barker Operator Goals Drum Barker Operator Goals PT Drum Barker Operator Goals Time Frame: Dec 20, 2017 Transfers (B,C,W/C) (FIM): 6 (met) Sit to Lying (QC): 6 (met) Lying-Sitting on Side/Bed(QC): 6 (met) Sit to Stand (QC): 6 (met) Rollin (met) Roll Left to Right (QC): 6 (met) Chair/Vhq-ej-Mqcff Xfer(QC): 6 (mt) Car Transfer (QC): 6 (met) Gait (FIM): 2 Distance: 50' Walk 10 feet (QC): 4 Walk 10ft-Uneven Surface(QC): 4 Walk 50ft with 2 Turns (QC): 4 Walk 150 ft (QC): 4 Gait Level of Assist: 5 Gait Assistive Device: FWW Wheelchair (FIM): 6 (met) Distance: 150' Wheelchair Level of Assist: 6 (met) Wheel 50 feet with 2 turns (QC: 6 (met) PT Plan Problem List Problem List: Activity Tolerance, Functional Strength, Safety, Balance, Gait, Transfer, Bed Mobility, ROM Treatment/Plan Treatment Plan: Continue Plan of Care Treatment Plan: Bed Mobility, Education, Functional Activity Kang, Functional Strength, Group Therapy, Gait, Safety, Therapeutic Exercise, Transfers Treatment Duration: Dec 20, 2017 Frequency: At least 5 of 7 days/Wk (IRF) Estimated Hrs Per Day: 1.5 hours per day Patient and/or Family Agrees t: Yes Safety Risks/Education Patient Education: Transfer Techniques, Reviewed Precautions, Correct Positioning, W/C Management, Safety Issues Teaching Recipient: Patient, Family Teaching Methods: Demonstration, Discussion Response to Teaching: Reinforcement Needed Time/GCodes Time In: 0930 Time Out: 1030 Total Billed Treatment Time: 60 Total Billed Treatment 1 visit EX 30' FA 15' [facility] 15' TABITHA FERGUSON PT Dec 06, 2017 10:27
[2017-12-06] MEDS: ACETAMINOPHEN 325 MG TABLET PO PRN (12:10)
[2017-12-06] MEDS ORDERED: fluCOnazole (DIFLUCAN) 100 MG TAB PO NR (12:15)
--- NOTE | 2017-12-06 12:43 | Occupational Ther Daily Note ---
OT Current Status-Daily Note Subjective Pt seen in room, up in recliner, agreeable to OT. Mentioned her foot was hurting and nursing notified for pain meds. Mental Status/Objective Functional [place] Measure 0=Not Assessed/NA 4=Minimal Assistance 1=Total Assistance 5=Supervision or Setup 2=Maximal Assistance 6=Modified [place] 3=Moderate Assistance 7=Complete [place] ADL-Treatment Functional [place] Measure 0=Not Assessed/NA 4=Minimal Assistance 1=Total Assistance 5=Supervision or Setup 2=Maximal Assistance 6=Modified [place] 3=Moderate Assistance 7=Complete IndependenceIRFPAI Quality Coding Scale 6 Independent with activity with or without an assistive device 5 Patient requires set up or clean up by helper. Patient completes activity by themselves 4 Supervision or touching assist (CGA). [place] provide cues , steadying assist 3 The helper provides less than half the effort to complete the activity 2 The helper provides more than half the effort to complete the activity 1 Dependent. The helper does all the effort to complete an activity 7 Patient refused to complete or attempt activity 9 The patient did not perform the activity before the current illness or injury 88 Not attempted due to Medical conditions or safety concerns Other Treatment Pt transferred with mod I from recliner to w/c and then propelled her chair to the gym. She did 15 minutes bilat UE exercise with arm bike set at 25W resistance, with a couple brief recovery periods. W/C propulsion and exercise to strengthen arms to help with safe standing with FWW. She took herself back to her room and transferred back into recliner with mod I. She consistently locks breaks on w/c but has a little trouble managing leg rests. Her w/c at home does not have leg rests. Pt left up in recliner, all needs met. Education OT Patient Education: Exercise program, Progress toward Goal/Update tx plan, Purpose of tx/functional activities Teaching Recipient: Patient Teaching Methods: Discussion Response to Teaching: Verbalize Understanding OT Short Term Goals Short Term Goals Time Frame: Dec 06, 2017 Eating(FIM): 6 Grooming(FIM): 6 Bathing(FIM): 5 Upper Body Dressing(FIM): 5 Lower Body Dressing(FIM): 5 Toileting(FIM): 6 Transfers (B,C,W/C) (FIM): 5 Toilet/Commode Transfer(FIM): 5 Shower Transfer(FIM): 5 Additional Short Term Goals: 1-Demonstrate ADL Tasks, 2-Verbalize Understanding , 3-ImproveStrength/Kang 1=Demonstrate adherence to instructed precautions during ADL tasks. 2=Patient will verbalize/demonstrate understanding of assistive devices/ modifications for ADL. 3=Patient will improve strength/tolerance for activity to enable patient to perform ADL's. OT Reinforcing Steel Placer Goals Reinforcing Steel Placer Goals Time Frame: Dec 13, 2017 Eating (FIM): 6 (met --18) Eating (QC): 6 (met --18) Groomin (met --18) Oral Hygiene (QC): 6 (met --18) Bathing(FIM): 5 (met 12-06-18) Shower/Bathe Self (QC): 5 (met --) Upper Body Dressing(FIM): 6 (met --18) Upper Body Dressing (QC): 6 (met --18) Lower Body Dressing(FIM): 6 (met 18) Lower Body Dressing (QC): 6 (met 12-06-18) On/Off Footwear (QC): 6 (met 12-06-18) Toileting(FIM): 6 (met 12-06-18) Toileting Hygiene (QC): 6 (met 12-06-18) Transfers (B,C,W/C) (FIM): 6 (met 12-06-18) Toilet/Commode Transfer(FIM): 6 (met 12-06-18) Toilet/Commode Transfer (QC): 6 (met 12-06-18) Shower Transfer(FIM): 5 (met 18) Additional Goals: 1-Demonstrate ADL Tasks, 2-Verbalize Understanding, 3- ImproveStrength/Kang 1=Demonstrate adherence to instructed precautions during ADL tasks. 2=Patient will verbalize/demonstrate understanding of assistive devices/ modifications for ADL. 3=Patient will improve strength/tolerance for activity to enable patient to perform ADL's. OT Education/Plan Discharge Recommendations Plan/Recommendations: Continue POC (anticipate dc to home tomorrow) Treatment Plan/Plan of Care Patient would benefit from OT for education, treatment and training to promote independence in ADL's, mobility, safety and/or upper extremity function for ADL' s. Plan of Care: ADL Retraining, Functional Mobility, UE Funct Exercise/Act Treatment Duration: Dec 13, 2017 Frequency: At least 5 of 7 days/Wk (IRF) Estimated Hrs Per Day: 1.5 hours per day Agreement: Yes Rehab Potential: Good Time/GCodes Start Time: 11:55 Stop Time: 12:30 Total Time Billed (hr/min): 35 Billed Treatment Time visit, 35 minutes exercise JESUSITA MOISE OT Dec 06, 2017 12:43
--- NOTE | 2017-12-06 14:32 | Physical Therapy Daily Note ---
PT Daily Note-Current Subjective Patient in recliner pre tx, agrees to PT, no complaints of pain. Patient needs to use the restroom. Appearance Patient in recliner post tx with nurse call, phone, tray, all needs met. Mental Status Patient Orientation: Normal For Age boot left foot Transfers Functional [place] Measure 0=Not Assessed/NA 4=Minimal Assistance 1=Total Assistance 5=Supervision or Setup 2=Maximal Assistance 6=Modified [place] 3=Moderate Assistance 7=Complete IndependenceIRFPAI Quality Coding Scale 6 Independent with activity with or without an assistive device 5 Patient requires set up or clean up by helper. Patient completes activity by themselves 4 Supervision or touching assist (CGA). [place] provide cues , steadying assist 3 The helper provides less than half the effort to complete the activity 2 The helper provides more than half the effort to complete the activity 1 Dependent. The helper does all the effort to complete an activity 7 Patient refused to complete or attempt activity 9 The patient did not perform the activity before the current illness or injury 88 Not attempted due to Medical conditions or safety concerns Transfers (B, C, W/C) (FIM): 6 Sit to/from Stand: 6 Bed to/from Chair: 6 Weight Bearing Right Lower Extremity: Right Full Weight Bearing Left Lower Extremity: Left Non Weight Bearing Wheelchair Training Wheelchair (FIM): 6 Distance: 200'x2 Type of Wheelchair: Manual Exercises NuStep Minutes: 15 NuStep Workload: 4 (left leg not used) Treatments wheelchair mobility, functional strengthening, patient was toileted once with SBA Assessment Current Status: Fair Progress improving mobility and transfers PT Short Term Goals Short Term Goals Time Frame: Dec 06, 2017 Transfers (B,C,W/C) (FIM): 5 Gait (FIM): 1 Gait Distance Comment: 20' Gait Level of Assist: 4 Gait Assistive Device: FWW Wheelchair Distance: 800' PT Usp Goals Check Out Cashier Goals PT Usp Goals Time Frame: Dec 20, 2017 Transfers (B,C,W/C) (FIM): 6 (met) Sit to Lying (QC): 6 (met) Lying-Sitting on Side/Bed(QC): 6 (met) Sit to Stand (QC): 6 (met) Rollin (met) Roll Left to Right (QC): 6 (met) Chair/Xjq-ux-Xqpvj Xfer(QC): 6 (mt) Car Transfer (QC): 6 (met) Gait (FIM): 2 Distance: 50' Walk 10 feet (QC): 4 Walk 10ft-Uneven Surface(QC): 4 Walk 50ft with 2 Turns (QC): 4 Walk 150 ft (QC): 4 Gait Level of Assist: 5 Gait Assistive Device: FWW Wheelchair (FIM): 6 (met) Distance: 150' Wheelchair Level of Assist: 6 (met) Wheel 50 feet with 2 turns (QC: 6 (met) PT Plan Problem List Problem List: Activity Tolerance, Functional Strength, Safety, Balance, Gait, Transfer, ROM Treatment/Plan Treatment Plan: Continue Plan of Care Treatment Plan: Bed Mobility, Education, Functional Activity Kang, Functional Strength, Group Therapy, Gait, Safety, Therapeutic Exercise, Transfers Treatment Duration: Dec 20, 2017 Frequency: At least 5 of 7 days/Wk (IRF) Estimated Hrs Per Day: 1.5 hours per day Patient and/or Family Agrees t: Yes Safety Risks/Education Patient Education: Transfer Techniques, Correct Positioning, W/C Management, Safety Issues Teaching Recipient: Patient Teaching Methods: Demonstration, Discussion Response to Teaching: Reinforcement Needed Time/GCodes Time In: 1330 Time Out: 1400 Total Billed Treatment Time: 30 Total Billed Treatment 1 visit EX 15' FA 15' TABITHA FERGUSON PT Dec 06, 2017 14:32
[2017-12-06 17:23] VITALS: BP 114/62
[2017-12-06] MEDS ORDERED: OXYC-471 PO (19:51)
[2017-12-06] MEDS ORDERED: POLY17PO23 PO (19:51)
[2017-12-06] MEDS: ALPRAZolam 0.5 MG (XANAX) TAB PO SCH (20:45)
[2017-12-07 06:10] VITALS: BP 117/69
[2017-12-07] MEDS: LACTOBACILLUS Acidoph/Bulgar (LACTINEX/FLORANEX) TAB PO SCH (06:13)
[2017-12-07] MEDS: MULTIVIT W/MINERALS TAB (THERAGRAN M) PO SCH (06:13)
[2017-12-07] MEDS: predniSONE 1 MG TAB PO SCH (06:13)
[2017-12-07] MEDS: PANTOPRAZOLE 40 MG (PROTONIX) TAB PO SCH (06:13)
[2017-12-07] MEDS: predniSONE 5 MG TAB PO SCH (06:13)
[2017-12-07] MEDS: LEVOTHYROXINE 75 MCG (LEVOTHROID) TABLET PO SCH (06:13)
--- NOTE | 2017-12-07 08:15 | PM & R (SOAP) Progress Note ---
Subjective This was a face to face visit with the patient. Date Seen by Provider: Dec 07, 2017 Time Seen by Provider: 08:00 Subjective/Events-last exam Patient was seen in her room this AM.[place] for discharge today. Has progressed well Objective Physician Exam Last Set of Vital Signs Vital Signs Date Time Temp Pulse Resp B/P (MAP) Pulse Ox O2 Delivery O2 Flow Rate FiO2 12/07/17 06:10 98.5 71 15 117/69 (85) 97 Room Air Capillary Refill : I&O Intake and Output 12/07/17 00:00 Intake Total 1450 ml Balance 1450 ml Intake Oral 1450 ml # Voids 6 # Bowel Movements 2 General: Alert, Oriented X3, Cooperative, No Acute Distress HEENT: Atraumatic, PERRLA, EOMI, Mucous Memb Moist/[place] Neck: Supple, No JVD Lungs: Clear to Auscultation Heart: Regular Rate Abdomen: Normal Bowel Sounds, Soft, No Tenderness Extremities: Other (RT Foot in boot) Neuro: Other (Strength 4/5 BUES and LLE RT limited by boot Sensation grossly intact to touch) Results Lab Data Laboratory Tests 12/06/17 06:26: Urine Color YELLOW, Urine Clarity CLEAR, Urine pH 6, Urine Specific [place] 1.015L, Urine Protein NEGATIVE, Urine Glucose (UA) NEGATIVE, Urine Ketones NEGATIVE, Urine Nitrite NEGATIVE, Urine Bilirubin NEGATIVE, Urine Urobilinogen NORMAL, Urine Leukocyte Esterase NEGATIVE, Urine RBC (Auto) NEGATIVE, Urine RBC NONE, Urine WBC NONE, Urine Squamous Epithelial Cells 0-2, Urine Crystals NONE, Urine Bacteria NEGATIVE, Urine Casts NONE, Urine Mucus NEGATIVE, Urine Culture Indicated NO Assessment/Plan Assessment and Plan Home today with family and HHC F/U with DPM amd PCP See orders (1) Rheumatoid arthritis Qualifiers: Status: Acute Co-Morbidities that are continuing to impact the rehab process: (include details ) TOM ORTIZ MD Dec 07, 2017 08:15
[2017-12-07] MEDS: POLYETHYLENE GLYCOL 17 GM (MIRALAX) PACK PO SCH (08:22)
[2017-12-07] MEDS: VITAMIN D3 1,000 UNITS (CHOLECALCIFEROL) TABLET PO SCH (08:27)
[2017-12-07] MEDS: oxyCODONE/APAP 5/325MG (PERCOCET 5) TABLET PO PRN (08:27)
[2017-12-07] MEDS: ASPIRIN E.C. 81 MG (ECOTRIN) TAB PO SCH (08:27)
[2017-12-07] MEDS: ISOSORBIDE MONONITRATE 30 MG (IMDUR) TAB PO SCH (08:27)
[2017-12-07] MEDS: FLUTICASONE NASAL SPRAY (FLONASE) 16 GM BTL NS SCH (08:28)
--- NOTE | 2017-12-07 08:36 | Therapy Team Discharge Summary ---
Therapy Discharge Summary Discharge Recommendations Date of Discharge Therapy D/C Recommendations: Home w/ Family Support, Occupational Therapy Home Care Occupational Therapy Pt was seen for skilled OT to increase her independence ini basic self care to allow her to safely return home. On admission she needed CGA for lower body dressing, toileting, toilet transfers, shower transfers and bathing, SBA for upper body dressing and setup for grooming. By discharge she had progressed to modified independent or independent with all of her basic ADLs, done primarily at w/c level. She used BSC, shower bench, grab bars, FWW, hand held shower. See tx plan for goals met. Home health OT is recommended. DC OT Decreased Activ Tolerance, Impaired I ADL's, Impaired Self-Care Skills PT Gasoline Pump Installer Goals Gasoline Pump Installer Goals PT Gasoline Pump Installer Goals Time Frame: Dec 20, 2017 Transfers (B,C,W/C) (FIM): 6 (met) Roll Left to Right (QC): 6 (met) Sit to Lying (QC): 6 (met) Lying-Sitting on Side/Bed(QC): 6 (met) Sit to Stand (QC): 6 (met) Chair/Upj-oe-Ilzvk Xfer(QC): 6 (mt) Car Transfer (QC): 6 (met) Gait (FIM): 2 Distance: 50' Walk 10 feet (QC): 4 Walk 10ft-Uneven Surface(QC): 4 Walk 50ft with 2 Turns (QC): 4 Walk 150 ft (QC): 4 Gait Level of Assist: 5 Gait Assistive Device: FWW Wheelchair (FIM): 6 (met) Distance: 150' Wheelchair Level of Assist: 6 (met) Wheel 50 feet with 2 turns (QC: 6 (met) OT Gasoline Pump Installer Goals Residential Goals Time Frame: Dec 13, 2017 Eating (FIM): 6 (met 6-19-18) Eating (QC): 6 (met 6-19-18) Oral Hygiene (QC): 6 (met 6-19-18) Grooming(FIM): 6 (met 6-19-18) Bathing(FIM): 5 (met 6-19-18) Shower/Bathe Self (QC): 5 (met 6-19-18) Upper Body Dressing(FIM): 6 (met 6-19-18) Upper Body Dressing (QC): 6 (met 6-19-18) Lower Body Dressing(FIM): 6 (met 12-06-17) Lower Body Dressing (QC): 6 (met 12-06-17) On/Off Footwear (QC): 6 (met 12-06-17) Toileting(FIM): 6 (met 12-06-17) Toileting Hygiene (QC): 6 (met 12-06-17) Transfers (B,C,W/C) (FIM): 6 (met 12-06-17) Toilet/Commode Transfer(FIM): 6 (met 12-06-17) Toilet/Commode Transfer (QC): 6 (met 12-06-17) Shower Transfer(FIM): 5 (met 12-06-17) Additional Goals: 1-Demonstrate ADL Tasks, 2-Verbalize Understanding, 3- ImproveStrength/Kang 1=Demonstrate adherence to instructed precautions during ADL tasks. 2=Patient will verbalize/demonstrate understanding of assistive devices/ modifications for ADL. 3=Patient will improve strength/tolerance for activity to enable patient to perform ADL's. JESUSITA MOISE OT Dec 07, 2017 08:36
--- NOTE | 2017-12-07 08:46 | Progress Note (SOAP) ---
Subjective Time Seen by Provider: 08:45 Subjective/Events-last exam Patient excited about going home today. Patient does not have UTI symptoms today. Patient feels that Diflucan helped Objective Exam Vital Signs Date Time Temp Pulse Resp B/P (MAP) Pulse Ox O2 Delivery O2 Flow Rate FiO2 12/07/17 06:10 98.5 71 15 117/69 (85) 97 Room Air 12/06/17 21:00 Room Air 12/06/17 17:23 96.7 69 16 114/62 (79) 97 Room Air 12/06/17 09:40 Room Air I & O 12/07/17 07:00 Intake Total 2090 ml Balance 2090 ml Capillary Refill : General Appearance: No Apparent Distress, WD/WN Neck: Full Range of Motion, Normal Inspection Respiratory: Lungs Clear, No Accessory Muscle Use, No Respiratory Distress Cardiovascular: Regular Rate, Rhythm Assessment/Plan Assessment/Plan Assess & Plan/Chief Complaint Rheumatoid arthritis. Recent foot surgery. Nonweightbearing. Hypothyroid. Skipped heartbeats. Aortic aneurysm 4 cm 1 year ago. . 11/30/17. Rheumatoid arthritis. Recent foot surgery. 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 . 12/01/17. Rheumatoid arthritis.. Recent foot surgery. Patient learn to take care of herself. Hypothyroid. Nonweightbearing. 12/02/17. Rheumatoid arthritis. Recent foot surgery. Nonweightbearing. Hypothyroid. History of skipped heartbeats.. . 12/05/17. Rheumatoid arthritis. Recent foot surgery. Not weight hearing. UTI to be evaluated tomorrow . 12/06/17. Rheumatoid arthritis. Recent foot surgery. Not weightbearing. UA negative.. . 12/07/17. Rheumatoid arthritis. Recent foot surgery. Not weightbearing. UA symptoms better Clinical Quality Measures DVT/VTE Risk/Contraindication: Risk Factor Score Per Nursin RFS Level Per Nursing on Admit: 4+=Very High LISA HARDING DO Dec 07, 2017 08:46
[2017-12-07 08:58] VITALS: BP 117/69
--- NOTE | 2017-12-07 10:25 | Therapy Team Discharge Summary ---
Therapy Discharge Summary Discharge Recommendations Date of Discharge 12/07/17 Therapy D/C Recommendations: Home w/ Family Support, Occupational Therapy Home Care, Physical Therapy Home Care Physical Therapy This patient has been seen for skilled PT post multiple surgical interventions on her left foot that required her to be NWB for a period of time. In addition , she has a hx of RA. Upon admit, she required min assist with transfers, able to hop 3 ft with FWW with min assist and was SBA with wheelchair mobility. Treatment has consisted of functional strengthening and balance to progress her transfers, bed mobility and wheelchair mobilty. Ambulation was not addressed much due to the extra stress it placed on her UE's to hop and aggravation of RA. She has made excellent progress and is mod indep with all transfers and wheelchair mobility. Stairs not addresses as she will have ramp and hopping up/ down is too difficult as well. She has achieved all goals to a satisfactory level and is to discharge home this date with family and continued support. Occupational Therapy Decreased Activ Tolerance, Impaired I ADL's, Impaired Self-Care Skills PT Retirement Goals Retirement Goals PT Retirement Goals Time Frame: Dec 20, 2017 Transfers (B,C,W/C) (FIM): 6 (met) Roll Left to Right (QC): 6 (met) Sit to Lying (QC): 6 (met) Lying-Sitting on Side/Bed(QC): 6 (met) Sit to Stand (QC): 6 (met) Chair/Scx-ff-Pmerx Xfer(QC): 6 (mt) Car Transfer (QC): 6 (met) Gait (FIM): 2 (unmet; unable to hop) Distance: 50' Walk 10 feet (QC): 4 Walk 10ft-Uneven Surface(QC): 4 Walk 50ft with 2 Turns (QC): 4 Walk 150 ft (QC): 4 Gait Level of Assist: 5 Gait Assistive Device: FWW Wheelchair (FIM): 6 (met) Distance: 150' Wheelchair Level of Assist: 6 (met) Wheel 50 feet with 2 turns (QC: 6 (met) Pt has met all transfer and wheelchair goals; ambulation goal unmet due to hx of RA and inability to bear weight through arms to hop. OT Retirement Goals Dental Claims Processor Goals Time Frame: Dec 13, 2017 Eating (FIM): 6 (met -19-18) Eating (QC): 6 (met 12-06-17) Oral Hygiene (QC): 6 (met 12-06-17) Grooming(FIM): 6 (met 12-06-17) Bathing(FIM): 5 (met 12-06-17) Shower/Bathe Self (QC): 5 (met 12-06-17) Upper Body Dressing(FIM): 6 (met 12-06-17) Upper Body Dressing (QC): 6 (met 12-06-17) Lower Body Dressing(FIM): 6 (met 12-06-17) Lower Body Dressing (QC): 6 (met 12-06-17) On/Off Footwear (QC): 6 (met 12-06-17) Toileting(FIM): 6 (met 12-06-17) Toileting Hygiene (QC): 6 (met 12-06-17) Transfers (B,C,W/C) (FIM): 6 (met 12-06-17) Toilet/Commode Transfer(FIM): 6 (met 12-06-17) Toilet/Commode Transfer (QC): 6 (met 12-06-17) Shower Transfer(FIM): 5 (met 12-06-17) Additional Goals: 1-Demonstrate ADL Tasks, 2-Verbalize Understanding, 3- ImproveStrength/Kang 1=Demonstrate adherence to instructed precautions during ADL tasks. 2=Patient will verbalize/demonstrate understanding of assistive devices/ modifications for ADL. 3=Patient will improve strength/tolerance for activity to enable patient to perform ADL's. ABEBA TRINIDAD PT Dec 07, 2017 10:25
== END 2017-12-07 15:09 | disposition home health service (06) | DRG 546 ==
PROVIDERS: ADMIT Physical Medicine & Rehabilitation; ATTEND Physical Medicine & Rehabilitation
DX: M06.9 Rheumatoid arthritis, unspecified (principal); N39.0 Urinary tract infection, site not specified; Z47.89 Encounter for other orthopedic aftercare; E03.9 Hypothyroidism, unspecified; K21.0 Gastro-esophageal reflux disease with esophagitis; I71.2 Thoracic aortic aneurysm, without rupture; Z87.891 Personal history of nicotine dependence; Z79.52 Long term (current) use of systemic steroids
CPT/HCPCS: 36415; 72192; 73502; 76775; 80053; 81000; 85025; 93005